=== PATIENT | female | born 1985 | race Caucasian/White ===

== ENCOUNTER 2025-05-08 03:54 | Emergency (ER) | payer OTHER, SELFPAY ==
[2025-05-08 03:58] VITALS: BP 116/79; PULSE 92; TEMP 36.6; O2SAT 100; BMI 16.5
--- NOTE | 2025-05-08 04:26 | ED.ABDPAIN1 ---
HPI - Abdominal Pain General Chief Complaint: Abdominal Pain Stated Complaint: WEAKNESS, ABDOMINAL PAIN Time Seen by Provider: 05/08/25 04:08 History of Present Illness HPI narrative: past history of Crohn's disease. last BM one week ago. Has not had colonoscopy in over 7 years. States she has not been seen by GI for several years. She has loss about 3-lbs in the past few months. States she is able to eat . She has been depressed after a breakup of someone she was with for 12 years. Has new boyfriend now for past 3 months. Has lower abdominal pain that comes and goes. Feels like her whole body is aching. no fever. Had chest pain for 10 minutes yesterday. Past tubal ligation. Home test neg . Related Data Home Medications ?Medication ?Instructions ?Recorded ?Confirmed No Known Home Medications 05/08/25 05/08/25 Allergies Allergy/AdvReac Type Severity Reaction Status Date / Time No Known Drug Allergies Allergy Verified 05/08/25 04:02 Review of Systems ROS Status of ROS 10 or more systems reviewed and unremarkable except as noted in history and below [facility] Medical History (Updated 05/08/25 @ 06:48 by Stevenson Luis MD) Crohn's disease ?K50.90 - Crohn's disease, unspecified, without complications (ICD-10) Surgical History (Updated 05/08/25 @ 06:08 by Florencia Booth) History of bilateral salpingectomy ?Z90.79 - Acquired absence of other genital organ(s) (ICD-10) Social History Little interest or pleasure in doing things: not at all Feeling down, depressed, or hopeless: not at all Exam Constitutional Vital Signs, click to edit/add: Last Vital Signs Temp 97.9 F 05/08/25 03:58 Pulse 92 H 05/08/25 03:58 Resp 18 05/08/25 03:58 BP 116/79 05/08/25 03:58 Pulse Ox 100 05/08/25 03:58 O2 Del Method Room Air 05/08/25 03:58 Common normals: no apparent distress, oriented x3, alert and well nourished Other: looks emaciated [facility] Common normals: normocephalic and head/scalp atraumatic Eye Common normals: EOMs intact bilaterally and conjunctivae normal Respiratory Common normals: normal respiratory effort, no retractions, no use of accessory muscles and clear to auscultation bilaterally Cardio Common normals: regular rate, regular rhythm, S1 normal heart sound and S2 normal heart sound GI Common normals: Normal to inspection, nondistended, normoactive bowel sounds present and soft to palpation Other: nonspecific lower quad tenderness. no guarding Extremity Common normals: normal to inspection and full ROM Neuro Common normals: oriented x3, CN's II-XII intact bilaterally, moves all extremities and no focal motor deficits Psych Appearance: grossly normal Mood and affect: depressed mood Course Vital Signs Vital signs: Vital Signs Temperature 97.9 F 05/08/25 03:58 Pulse Rate 92 H 05/08/25 03:58 Respiratory Rate 18 05/08/25 03:58 Blood Pressure 116/79 05/08/25 03:58 Pulse Oximetry 100 05/08/25 03:58 Oxygen Delivery Method Room Air 05/08/25 03:58 Temperature 97.9 F 05/08/25 03:58 Pulse Rate 92 H 05/08/25 03:58 Respiratory Rate 18 05/08/25 03:58 Blood Pressure 116/79 05/08/25 03:58 Pulse Oximetry 100 05/08/25 03:58 Oxygen Delivery Method Room Air 05/08/25 03:58 MDM - Abdominal Pain MDM Narrative Medical decision making narrative: Normal white blood cell count. Unremarkable CMP. Negative UA. CT abdomen pending. Patient signed out to Dr Abdi at shift change. Lab Data Attestation: I reviewed the patient's lab results. Labs: Lab Results 05/08/25 05/08/25 Range/Units 04:07 04:14 WBC 8.7 (4.0-11.0) 10^3/uL RBC 3.97 L (4.20-5.40) 10^6/uL Hgb 12.3 (12.0-16.0) g/dL Hct 36.1 (36.0-48.0) % MCV 90.9 (81.0-99.0) fL MCH 31.0 (26.7-34.0) pg MCHC 34.1 (29.9-35.2) g/dL RDW 12.4 (11.0-15.0) % Plt Count 270 (150-450) 10^3/uL MPV 9.4 L (9.5-13.5) fL Neut % (Auto) 65.8 (43.0-75.0) % Lymph % (Auto) 24.7 (20.5-60.0) % Hunt % (Auto) 8.1 (1.7-12.0) % Eos % (Auto) 0.6 L (0.9-7.0) % Baso % (Auto) 0.6 (0.2-2.0) % Neut # (Auto) 5.7 (1.4-6.5) 10^3/uL Lymph # (Auto) 2.2 (1.2-3.8) 10^3/uL Hunt # (Auto) 0.7 (0.3-0.8) 10^3/uL Eos # (Auto) 0.1 (0.0-0.7) 10^3/uL Baso # (Auto) 0.1 (0.0-0.1) 10^3/uL Abs Immat Gran (auto) 0.02 (0.00-0.03) 10^3/uL Imm/Tot Granulo (auto) 0.2 (0.0-0.5) % Sodium 140 (136-145) mmol/L Potassium 3.4 L (3.5-5.1) mmol/L Chloride 104 (98-107) mmol/L Carbon Dioxide 26.3 (21.0-32.0) mmol/L Anion Gap 13.1 BUN 17.0 (7.0-18.0) mg/dL Creatinine 0.87 (0.55-1.02) mg/dL Est GFR ( Amer) >60 (>=60 mL/min/1.73m^2) Est GFR (Non-Af Amer) >60 (>=60 mL/min/1.73m^2) BUN/Creatinine Ratio 19.5 Glucose 122 H (74-106) mg/dL Lactate 0.7 (0.4-2.0) mmol/L Calcium 8.9 (8.5-10.1) mg/dL Total Bilirubin 0.5 (0.2-1.0) mg/dL AST 12 L (15-37) U/L ALT 16 (14-59) U/L Alkaline Phosphatase 53 (46-116) U/L Troponin I High Sens 6.8 (4.0-51.3) pg/mL Total Protein 7.1 (6.4-8.2) g/dL Albumin 3.7 (3.4-5.0) g/dL Globulin 3.4 g/dL Albumin/Globulin Ratio 1.1 Lipase 25.0 (16.0-77.0) U/L Urine Color Yellow (YELLOW) Urine Clarity Clear (CLEAR) Urine pH 6.0 (5.0-9.0) Ur Specific [place] 1.020 (1.005-1.025) Urine Protein Negative (NEG/TRACE) mg/dL Urine Glucose (UA) Negative (NEGATIVE) mg/dL Urine Ketones Trace A (NEGATIVE) mg/dL Urine Occult Blood Negative (NEGATIVE) Urine Nitrite Negative (NEGATIVE) Urine Bilirubin Negative (NEGATIVE) Urine Urobilinogen 1.0 (0.2-1.0) EU/dL Ur Leukocyte Esterase Negative (NEGATIVE) Urine RBC None seen (0-2) #/HPF Urine WBC None seen (NONE SEEN) #/HPF Ur Squamous Epith Cells Few A (NONE/RARE) #/LPF Urine Crystals None seen (None Seen) #/HPF Urine Bacteria None seen (NONE SEEN) #/HPF Urine Casts None seen (NONE SEEN) #/LPF Urine Mucus None seen (NONE SEEN) Ur Culture Indicated? No Urine HCG, Qual Negative (NEGATIVE) Discharge Plan Discharge Patient Disposition: Still a Patient
[2025-05-08 04:37] LABS: Hematocrit 36.1 % (36.0-48.0); Hemoglobin 12.3 g/dL (12.0-16.0); Immature Granulocytes Abs Auto 0.02 10^3/uL (0.00-0.03); Immature Granulocytes Pct Auto 0.2 % (0.0-0.5); Lymphocytes Absolute Auto 2.2 10^3/uL (1.2-3.8); Mean Corpuscular HGB Conc 34.1 g/dL (29.9-35.2); Mean Corpuscular Hemoglobin 31.0 pg (26.7-34.0); Mean Corpuscular Volume 90.9 fL (81.0-99.0); Platelet Count 270 10^3/uL (150-450); Red Blood Count 3.97 10^6/uL (4.20-5.40); White Blood Count 8.7 10^3/uL (4.0-11.0)
[2025-05-08 04:39] LABS: Glucose Urine UA NEGATIVE (NEGATIVE)
[2025-05-08 04:51] LABS: Alanine Aminotransferase 16 U/L (14-59); Albumin Globulin Ratio 1.1; Albumin Level 3.7 g/dL (3.4-5.0); Alkaline Phosphatase 53 U/L (46-116); Anion Gap 13.1; Aspartate Amino Transferase 12 U/L (15-37); Blood Urea Nitrogen 17.0 mg/dL (7.0-18.0); Calcium 8.9 mg/dL (8.5-10.1); Carbon Dioxide 26.3 mmol/L (21.0-32.0); Chloride 104 mmol/L (98-107); Estimated GFR (African America >60 (>=60 mL/min/1.73m^2); Estimated GFR (Non-African Ame >60 (>=60 mL/min/1.73m^2); Globulin 3.4 g/dL; Glucose 122 mg/dL (74-106); Lipase 25.0 U/L (16.0-77.0); Potassium 3.4 mmol/L (3.5-5.1); Sodium 140 mmol/L (136-145); Total Protein 7.1 g/dL (6.4-8.2)
[2025-05-08 04:59] LABS: Lactate/Lactic Acid 0.7 mmol/L (0.4-2.0)
[2025-05-08 05:04] LABS: Cast Seen? NONE SEEN #/LPF (NONE SEEN); Crystals Seen? None Seen #/HPF (None Seen); Urine Culture Indicated NO
[2025-05-08 05:17] LABS: HCG Qualitative Urine* NEGATIVE (NEGATIVE)
[2025-05-08] MEDS: ORPHENADRINE 60 MG/2 ML VIAL IV (05:26)
[2025-05-08] MEDS: 0.9 % SODIUM CHLORIDE 1,000 ML 999 ML IV (05:26)
--- OUTSIDE RECORDS SUMMARY | 2025-05-08 05:46 | XMS_ITS | Patient Health Record ---
Author Organization [facility] in [place] Address [address] [place] [address] Support Name Relationship Address Phone Chayito Chandler Guarantor Unknown Reason For Referral No Information Plan Of Treatment No Information
--- OUTSIDE RECORDS SUMMARY | 2025-05-08 05:46 | XMS_ITS | Clinical Summary ---
Author Organization [facility] Address [address] [place] [id number] Care Team Providers Care Tobacco Prizer Name Role Phone Unavailable Primary Care Provider Unavailabl e Allergies No known active allergies Medications buprenorphine-n alOXone SL (SUBOXONE) 8-2 mg subl TAKE 1 TABLET SUBLINGUALLY EVERY MORNING AND HALF A TABLET EVERY EVENING [address] (DEPAKOTE) 250 mg EC tablet Take 250 mg by mouth once daily. 2 Active venlafaxine (EFFEXOR) 100 mg tablet Take 75 mg by mouth. Active Social History Tobacco Use Types Packs/Day Years Used Date Smoking Tobacco: Never Assessed Area Deprivation Index Answer Date Vincent rded National Score (1-100), lower number is lower ri sk 89 02/08/2025 State Score (1-10), lower number is lower risk 8 02/08/2025 Data from: https://www.neighborhoodatlas.medicine.[facility].edu/. Last address used for calculation [address] [place] [address] 02/08/2025 Comments Unknown Sex and Gender Information Value Date Recorded Sex Assigned at Not on file Legal Sex Female 8:35 AM EDT Gender Identity Not on file Sexual Orientation Not on file Last Filed Vital Signs Vital Sign Reading Time Taken Comments Blood Pressure 97/65 03/10/2022 1:14 PM EDT Pulse 113 03/10/2022 1:14 PM EDT Temperature - - Respiratory Rate - - Oxygen Saturation - - Inhaled Oxygen Concentration - - Weight 58.5 kg (129 lb) 03/10/2022 1:14 PM EDT Height - - Body Mass Index - - Plan of Treatment Health Maintenance Due Date Last Done Comments Anxiety Screening 2005 Depression Screening 2005 HIV Screening 2005 Hepatitis C Screening 2005 Hepatitis B Vaccine (1 of 3 - 19+ 3-dose series) 2006 Cervical Cancer Screening 2008 HPV Vaccine (1 - 3-dose SCDM series) 2014 Covid-19 Vaccine (1 - 2024-2 6 season) 2025 Influenza Vaccine (#1) 2025 5, 04/06/2014, 04/15/2013, Additional history exists DTaP,Tdap,Td Vaccine (3 - Td or Tdap) 11/27/2032 11/27/2022, 05/02/2013 Insurance [employer]
[2025-05-08 08:27] VITALS: BP 116/77; PULSE 73; O2SAT 99
[2025-05-08] MEDS: HYDROMORPHONE HCL 1 MG/ML CARTRIDGE IVP ×2 (09:19→18:33)
[2025-05-08 09:23] VITALS: PULSE 65; O2SAT 98
[2025-05-08] MEDS: 0.9 % SODIUM CHLORIDE 1,000 ML 150 ML IV (11:21)
[2025-05-08] MEDS: MIDAZOLAM HCL 50 MG/10 ML IV (11:57)
[2025-05-08 13:59] VITALS: PULSE 61; O2SAT 100
[2025-05-08 18:54] VITALS: BP 108/65; PULSE 67; O2SAT 99
== END 2025-05-08 18:55 | disposition short-term general hospital (02) ==
PROVIDERS: Internal Medicine; Emergency Provider Emergency Medicine
DX: K56.1 Intussusception (principal); K59.00 Constipation, unspecified; K50.90 Crohn's disease, unspecified, without complications
CPT/HCPCS: 36415; 74177; 80053; 81001; 83605; 83690; 84484; 84703; 85025; 96374; 96375; 96376; 99285; J1171; J2250; J2360; J2405; Q9967

== ENCOUNTER 2025-06-27 19:31 | Emergency (ER) | payer OTHER, SELFPAY ==
--- OUTSIDE RECORDS SUMMARY | 2022-05-13 03:28 | XMS_ITS | Continuity of Care Document ---
Author Organization [facility] Address [address] [place] [address] Phone Care Team Providers Care Medical Lab Technologist Name Role Phone Jose Alanna CORTEZ Unavailable Unavailable Allergies, Adverse Reactions, Alerts Substance Reaction Status Criticality No Known Allergies Active No Inform ation Medications Medication Instructions Dosage Effective Dates (start - stop) Status Comments buspirone 15 mg tablet take 1 tablet by oral route 2 times every day 15 MG - Active Depakote 250 mg tablet,delayed release take 1 tablet by oral route every day 250 MG - Active Effexor XR 75 mg capsule,extended release take 1 capsule by oral route every day with food 75 MG - Active ibuprofen 800 mg tablet TAKE 1 TABLET BY MOUTH THREE TIMES A DAY WITH FOOD - Active Imitrex 50 mg tablet take 1 tablet by oral route once after onset; may repeat after 2 hours if headache returns,not to exceed 200 in 24hrs as needed for Headache 50 MG - Active buprenorphine 8 mg-naloxone [address] 1 tablet by sublingual route every day allow to dissolve slowly in mouth without chewing or swallowing 1 tablet - Active F11.10 [id number] clindamycin HCl 300 mg capsule take 1 capsule by oral route every 6 hours 300 MG - Active Procedures Procedure Date Tobacco Counseling No Charge Oral Hygiene Instruction Intraoral-periapical 1st Film Bitewig-single Film Limited Oral Eval PSYTX PT&/FAMILY 60 MINUTES DRUG TEST PRSMV DIR OPT OBS OFFICE/OUTPATIENT VISIT, EST PSYTX PT&/FAMILY 60 MINUTES PSYTX PT&/FAMILY 45 MINUTES URINE TEST DRUG TEST PRSMV DIR OPT OBS OFFICE/OUTPATIENT VISIT, EST PSYTX PT&/FAMILY 60 MINUTES OFFICE/OUTPATIENT VISIT, EST DRUG TEST PRSMV DIR OPT OBS DRUG TEST PRSMV DIR OPT OBS OFFICE/OUTPATIENT VISIT, EST PSYTX PT&/FAMILY 60 MINUTES DRUG TEST PRSMV DIR OPT OBS OFFICE/OUTPATIENT VISIT, EST PSYTX PT&/FAMILY 60 MINUTES OFFICE/OUTPATIENT VISIT, EST DRUG TEST PRSMV DIR OPT OBS URINE TEST PSYTX PT&/FAMILY 60 MINUTES Bitewings Four Films Prophylaxis Adult Oral Hygiene Instruction Periodic Oral Eval Estab Patient 2020 DRUG TEST PRSMV DIR OPT OBS OFFICE/OUTPATIENT VISIT, EST PSYTX PT&/FAMILY 60 MINUTES Limited Oral Eval Oral Hygiene Instruction DRUG TEST PRSMV DIR OPT OBS OFFICE/OUTPATIENT VISIT, EST PSYTX PT&/FAMILY 45 MINUTES DRUG TEST PRSMV DIR OPT OBS OFFICE/OUTPATIENT VISIT, EST PSYTX PT&/FAMILY 45 MINUTES OFFICE/OUTPATIENT VISIT, EST DRUG TEST PRSMV DIR OPT OBS OFFICE/OUTPATIENT VISIT, EST DRUG TEST PRSMV DIR OPT OBS PSYTX PT&/FAMILY 60 MINUTES DRUG TEST PRSMV DIR OPT OBS OFFICE/OUTPATIENT VISIT, EST DRUG TEST PRSMV DIR OPT OBS OFFICE/OUTPATIENT VISIT, EST PSYTX PT&/FAMILY 60 MINUTES DRUG TEST PRSMV DIR OPT OBS OFFICE/OUTPATIENT VISIT, EST PSYTX PT&/FAMILY 60 MINUTES PSYTX PT&/FAMILY 60 MINUTES DRUG TEST PRSMV DIR OPT OBS OFFICE/OUTPATIENT VISIT, EST DRUG TEST PRSMV DIR OPT OBS OFFICE/OUTPATIENT VISIT, EST PSYTX PT&/FAMILY 60 MINUTES DRUG TEST PRSMV DIR OPT OBS OFFICE/OUTPATIENT VISIT, EST PSYTX PT&/FAMILY 60 MINUTES DRUG TEST PRSMV DIR OPT OBS OFFICE/OUTPATIENT VISIT, EST PSYTX PT&/FAMILY 60 MINUTES DRUG TEST PRSMV DIR OPT OBS OFFICE/OUTPATIENT VISIT, EST PSYTX PT&/FAMILY 60 MINUTES DRUG TEST PRSMV DIR OPT OBS OFFICE/OUTPATIENT VISIT, EST PSYTX PT&/FAMILY 45 MINUTES DRUG TEST PRSMV DIR OPT OBS OFFICE/OUTPATIENT VISIT, EST PSYTX PT&/FAMILY 45 MINUTES DRUG TEST PRSMV DIR OPT OBS OFFICE/OUTPATIENT VISIT, EST PSYTX PT&/FAMILY 60 MINUTES DRUG TEST PRSMV DIR OPT OBS OFFICE/OUTPATIENT VISIT, EST DRUG TEST PRSMV DIR OPT OBS OFFICE/OUTPATIENT VISIT, EST PSYCH DIAGNOSTIC EVALUATION OFFICE/OUTPATIENT VISIT, EST DRUG TEST PRSMV DIR OPT OBS OFFICE/OUTPATIENT VISIT, EST OFFICE/OUTPATIENT VISIT, EST DRUG TEST PRSMV DIR OPT OBS OFFICE/OUTPATIENT VISIT, EST Intraoral-complete Series (bw) 20 Comp Oral Eval New/estab Patient 2019 Nutrit Couns For Control Of [place] Dis Aug Oral Hygiene Instruction DRUG TEST PRSMV DIR OPT OBS OFFICE/OUTPATIENT VISIT, EST DRUG TEST PRSMV DIR OPT OBS OFFICE/OUTPATIENT VISIT, EST DRUG TEST PRSMV DIR OPT OBS OFFICE/OUTPATIENT VISIT, EST DRUG TEST PRSMV DIR OPT OBS OFFICE/OUTPATIENT VISIT, EST DRUG TEST PRSMV DIR OPT OBS OFFICE/OUTPATIENT VISIT, EST No Charge DRUG TEST PRSMV DIR OPT OBS OFFICE/OUTPATIENT VISIT, EST DRUG TEST PRSMV DIR OPT OBS OFFICE/OUTPATIENT VISIT, EST DRUG TEST PRSMV DIR OPT OBS DRUG TEST PRSMV DIR OPT OBS OFFICE/OUTPATIENT VISIT, EST DRUG TEST PRSMV DIR OPT OBS OFFICE/OUTPATIENT VISIT, EST DRUG TEST PRSMV DIR OPT OBS OFFICE/OUTPATIENT VISIT, EST DRUG TEST PRSMV DIR OPT OBS OFFICE/OUTPATIENT VISIT, EST DRUG TEST PRSMV DIR OPT OBS URINALYSIS NONAUTO W/O SCOPE OFFICE/OUTPATIENT VISIT, EST DRUG TEST PRSMV DIR OPT OBS URINALYSIS NONAUTO W/O SCOPE OFFICE/OUTPATIENT VISIT, EST DRUG TEST PRSMV DIR OPT OBS URINE TEST URINALYSIS NONAUTO W/O SCOPE OFFICE/OUTPATIENT VISIT, EST Office Visit/[facility] DRUG TEST PRSMV DIR OPT OBS OFFICE/OUTPATIENT VISIT, EST Office Visit/[facility] DRUG TEST PRSMV DIR OPT OBS OFFICE/OUTPATIENT VISIT, EST Office Visit/[facility] DRUG TEST PRSMV DIR OPT OBS OFFICE/OUTPATIENT VISIT, EST Office Visit/[facility] OFFICE/OUTPATIENT VISIT, EST DRUG SCREENING F[place] DRUG TEST PRSMV DIR OPT OBS DRUG TEST PRSMV DIR OPT OBS DRUG SCREENING [place] OFFICE/OUTPATIENT VISIT, EST DRUG TEST PRSMV DIR OPT OBS DRUG SCREENING [place] OFFICE/OUTPATIENT VISIT, EST DRUG TEST PRSMV DIR OPT OBS DRUG SCREENING [place] OFFICE/OUTPATIENT VISIT, EST OFFICE/OUTPATIENT VISIT, EST DRUG SCREENING [place] DRUG TEST PRSMV DIR OPT OBS URINE TEST OFFICE/OUTPATIENT VISIT, EST DRUG SCREENING [place] DRUG TEST PRSMV DIR OPT OBS Detox Discharge Alcohol and/or drug services- Acute Deto x Alcohol and/or drug services- Acute Deto x Alcohol and/or drug services- Acute Deto x DRUG TEST PRSMV DIR OPT OBS Alcohol and/or drug services- Acute Deto x URINE TEST Alcohol and/or drug services- Acute Deto x Alcohol and/or drug services- Acute Deto x Alcohol and/or drug services- Acute Deto x Alcohol and/or drug services- Acute Deto x SMEAR, WET MOUNT, SALINE/INK Alcohol and/or drug services- Acute Deto x Alcohol and/or drug services- Acute Deto x Advance Directives Directive Yes / No Effective Date File Name No Information Encounters Encounter Description Practice Location Reason(s) For Visit Diagnoses Date Provider Providers Copied on Encounter [facility], [address] [place] [address], [id number] , [place] tel: [phone] Behavorial Health Opioid dependence, uncomplicated Apr- 2 Jose Mondragon. [address] [place] [address], [address], [place]. tel:[phone] [facility], [address] [place] [address], [id number] , [place] tel: [phone] [facility] Opioid dependence, uncomplicatedMood disorderAnxiety NOS 2 Jose Mondragon. [address] [place] [address], [address], [place]. tel: [phone] [facility], [address] [place] [address], [id number] , [place] tel:+ [phone] Dental Clinic Extraction (chief complaint) Encounter for screening for dental disorders 2 Darwin Benitez. [address] [place] [address], [address], [place]. tel: [phone] [facility], [address] [place] [address], [id number] , [place] tel:+ [phone] Dental Clinic DL (chief complaint) Encounter for screening for dental disorders 0 2 Daniel Fairbanks. [address] [place] [address], [id number] , [place]. tel:+ [phone] PSYTX PT&/FAMILY 60 MINUTES [facility], [address] [place] [address], [id number] , [place] tel:+ [phone] [facility] Opioid dependence, uncomplicatedMood disorderAnxiety NOS 2 Jose Mondragon. [address] [place] [address], [address], [place]. tel:+ [phone] OFFICE/OUTPA TIENT VISIT, [facility], [address], [place], [id number] , [place] tel: [phone] [facility] Suboxone (chief complaint)U DS (chief complaint) Body mass index [BMI] 19.9 or less, adultOpioid dependence, uncomplicated 1 Pavlock DO Max. [address], [place], [id number] , [place]. tel: [phone] PSYTX PT&/FAMILY 60 MINUTES [facility], [address] [place] [address], [id number] , [place] tel: [phone] [facility] Opioid dependence, uncomplicatedMood disorderAnxiety NOS 1 Jose Mondragon. [address] [place] [address], [address], [place]. tel: [phone] PSYTX PT&/FAMILY 45 MINUTES [facility], [address] [place] [address], [id number] , [place] tel: [phone] [facility] Opioid dependence, uncomplicatedMood disorderAnxiety NOS 1 Jose Mondragon. [address] [place] [address], [address], [place]. tel: [phone] OFFICE/OUTPA TIENT VISIT, [facility], [address] [place] [address], [id number] , [place] tel: [phone] [facility] Suboxone (chief complaint) Opioid dependence, uncomplicatedBody mass index [BMI] 20.0-20.9, adult 1 Pavlock DO Max. [address], [place], [id number] , [place]. tel: [phone] PSYTX PT&/FAMILY 60 MINUTES [facility], [address] [place] [address], [id number] , [place] tel: [phone] [facility] Opioid dependence, uncomplicatedMood disorderAnxiety NOS 1 Jose Mondragon. [address] [place], [address], [place]. tel: [phone] OFFICE/OUTPA TIENT VISIT, [facility], [address], [place], [id number] , [place] tel: [phone] [facility] Suboxone (chief complaint) Body mass index [BMI] 21.0-21.9, adultOpioid dependence, uncomplicated 1 [facility] [address], [place], [id number] , [place]. tel: [phone] OFFICE/OUTPA TIENT VISIT, [facility], [address], [place], [id number] , [place] tel: [phone] [facility] Suboxone (chief complaint)U DS (chief complaint) Opioid dependence, uncomplicatedCervi rusty pain (neck) 1 [facility] [address], [place], [id number] , [place]. tel: [phone] PSYTX PT&/FAMILY 60 MINUTES [facility], [address] [place] [address], [id number] , [place] tel: [phone] [facility] Opioid dependence, uncomplicatedMood disorderAnxiety NOS 1 Jose Mondragon. [address] [place], [address], [place]. tel: [phone] OFFICE/OUTPA TIENT VISIT, [facility], [address], [place], [id number] , [place] tel: [phone] [facility] suboxone (chief complaint)U DS (chief complaint) Body mass index [BMI] 21.0-21.9, adultOpioid dependence, uncomplicatedMulti ple joint pain 1 Pavlock DO Max. [address], [place], [id number] , [place]. tel: [phone] PSYTX PT&/FAMILY 60 MINUTES [facility], [address] [place] [address], [id number] , [place] tel: [phone] [facility] Opioid dependence, uncomplicatedMood disorderAnxiety NOS 1 Jose Wangcy. [address] [place], [address], [place]. tel: [phone] OFFICE/OUTPA TIENT VISIT, [facility], [address], [place], [id number] , [place] tel: [phone] [facility] Suboxone (chief complaint)U DS (chief complaint) Opioid dependence, uncomplicatedUrina ry frequency 1 Pavlock DO Max. [address], [place], [id number] , [place]. tel: [phone] PSYTX PT&/FAMILY 60 MINUTES [facility], [address] [place] [address], [id number] , [place] tel: [phone] [facility] Opioid dependence, uncomplicatedMood disorderAnxiety NOS 1 Jose Mondragon. [address] [place], [address], [place]. tel: [phone] [facility], [address] [place] [address], [id number] , [place] tel: [phone] Dental Clinic prophy (chief complaint) Encounter for screening for dental disorders 1 Bhavik Masters. [address] [place] [address], [address], [place]. tel: [phone] OFFICE/OUTPA TIENT VISIT, [facility], [address], [place], [id number] , [place] tel: [phone] [facility] SUBOXONE (chief complaint)U DS (chief complaint) Body mass index [BMI] 21.0-21.9, adultOpioid dependence, uncomplicated 1 Pavlock DO Max. [address], [place], [id number] , [place]. tel: [phone] PSYTX PT&/FAMILY 60 MINUTES [facility], [address] [place] [address], [id number] , [place] tel: [phone] [facility] Opioid dependence, uncomplicatedMood disorderAnxiety NOS 1 Jose Wangcy. [address] [place], [address], [place]. tel: [phone] [facility], [address], [place], [id number] , [place] tel: [phone] Dental Clinic D.L. (chief complaint) Encounter for screening for dental disorders 1 Bhavik Masters. [address] [place], [address], [place]. tel: [phone] OFFICE/OUTPA TIENT VISIT, [facility], [address] [place] [address], [id number] , [place] tel: [phone] [facility] Suboxone (chief complaint)U DS (chief complaint) Body mass index [BMI] 22.0-22.9, adultOpioid dependence, uncomplicated 1 Pavlock DO Max. [address] [place] [address], [id number] , [place]. tel: [phone] PSYTX PT&/FAMILY 45 MINUTES [facility], [address] [place] [address], [id number] , [place] tel: [phone] [facility] Opioid dependence, uncomplicatedMood disorderAnxiety NOS 1 Jose Mondragon. [address] [place] [address], [address], [place]. tel:+ [phone] OFFICE/OUTPA TIENT VISIT, [facility], [address] [place] [address], [id number] , [place] tel:+ [phone] [facility] Suboxone (chief complaint)U DS (chief complaint) Body mass index [BMI] 22.0-22.9, adultOpioid dependence, uncomplicated 1 Pavlock DO Max. [address], [place], [id number] , [place]. tel: [phone] PSYTX PT&/FAMILY 45 MINUTES [facility], [address], [place], [id number] , [place] tel: [phone] [facility] Opioid dependence, uncomplicatedMood disorderAnxiety NOS 1 Jose Mondragon. [address] [place], [address], [place]. tel: [phone] [facility], [address], [place], [id number] , [place] tel: [phone] [facility] Opioid dependence, uncomplicatedMood disorderAnxiety NOS 1 Jose Mondragon. [address] [place], [address], [place]. tel: [phone] OFFICE/OUTPA TIENT VISIT, [facility], [address], [place], [id number] , [place] tel: [phone] [facility] suboxone (chief complaint)U DS (chief complaint) Opioid dependence, uncomplicatedBody mass index [BMI] 22.0-22.9, adult 1 Pavlock DO Max. [address], [place], [id number] , [place]. tel: [phone] OFFICE/OUTPA TIENT VISIT, [facility], [address], [place], [id number] , [place] tel: [phone] [facility] Suboxone (chief complaint) Opioid dependence with withdrawalOpioid dependence, uncomplicatedBody mass index [BMI] 22.0-22.9, adult 1 Pavlock DO Max. [address], [place], [id number] , [place]. tel: [phone] PSYTX PT&/FAMILY 60 MINUTES [facility], [address], [place], [id number] , [place] tel: [phone] [facility] Opioid dependence, uncomplicatedMood disorderAnxiety NOS 1 Jose Mondragon. [address] [place] [address], [address], [place]. tel: [phone] OFFICE/OUTPA TIENT VISIT, [facility], [address], [place], [id number] , [place] tel: [phone] [facility] Suboxone (chief complaint)U DS (chief complaint) Opioid dependence, uncomplicatedBody mass index [BMI] 22.0-22.9, adult 0 Pavlock DO Max. [address], [place], [id number] , [place]. tel: [phone] OFFICE/OUTPA TIENT VISIT, [facility], [address], [place], [id number] , [place] tel: [phone] [facility] Suboxone (chief complaint)C ough (chief complaint) Opioid dependence, uncomplicatedBody mass index [BMI] 22.0-22.9, adultCervical lymphadenitis 0 Pavlock DO Max. [address], [place], [id number] , [place]. tel: [phone] PSYTX PT&/FAMILY 60 MINUTES [facility], [address], [place], [id number] , [place] tel: [phone] [facility] Opioid dependence, uncomplicatedMood disorderAnxiety NOS 0 Jose Mondragon. [address] [place], [address], [place]. tel: [phone] OFFICE/OUTPA TIENT VISIT, [facility], [address], [place], [id number] , [place] tel: [phone] [facility] Suboxone (chief complaint)U DS (chief complaint) Body mass index [BMI] 22.0-22.9, adultOpioid dependence, uncomplicated 0 Pavlock DO Max. [address], [place], [id number] , [place]. tel: [phone] PSYTX PT&/FAMILY 60 MINUTES [facility], [address], [place], [id number] , [place] tel: [phone] [facility] Opioid dependence, uncomplicatedMood disorderAnxiety NOS 0 Jose DANA Mondragon. [address] [place], [address], [place]. tel: [phone] PSYTX PT&/FAMILY 60 MINUTES [facility], [address], [place], [id number] , [place] tel: [phone] [facility] Opioid dependence, uncomplicatedMood disorderAnxiety NOS 0 Jose DANA Mondragon. [address] [place], [address], [place]. tel: [phone] OFFICE/OUTPA TIENT VISIT, [facility], [address], [place], [id number] , [place] tel: [phone] [facility] Suboxone (chief complaint)U DS (chief complaint) Opioid dependence, uncomplicatedBody mass index [BMI] 22.0-22.9, adult Apr- 0 Pavlock DO Max. [address], [place], [id number] , [place]. tel: [phone] OFFICE/OUTPA TIENT VISIT, [facility], [address], [place], [id number] , [place] tel: [phone] [facility] Suboxone (chief complaint)U DS (chief complaint) Opioid dependence, uncomplicatedBody mass index [BMI] 21.0-21.9, adult Sep-3 0-202 0 Pavlock DO Max. [address], [place], [id number] , [place]. tel: [phone] PSYTX PT&/FAMILY 60 MINUTES [facility], [address], [place], [id number] , [place] tel: [phone] [facility] Opioid dependence, uncomplicatedMood disorderAnxiety NOS 0 0 Jose DANA Mondragon. [address] [place], [address], [place]. tel: [phone] OFFICE/OUTPA TIENT VISIT, [facility], [address], [place], [id number] , [place] tel: [phone] [facility] Suboxone (chief complaint)U DS (chief complaint) Opioid dependence, uncomplicatedBody mass index (BMI) 21.0-21.9, adultBronchitis Mar- 0 Pavlock DO Max. [address], [place], [id number] , [place]. tel: [phone] PSYTX PT&/FAMILY 60 MINUTES [facility], [address], [place], [id number] , [place] tel: [phone] [facility] Opioid dependence, uncomplicatedMood disorderAnxiety NOS Mar- 0 Jose Mondragon. [address] [place], [address], [place]. tel: [phone] OFFICE/OUTPA TIENT VISIT, [facility], [address], [place], [id number] , [place] tel: [phone] [facility] Suboxone (chief complaint)U DS (chief complaint) Opioid dependence, uncomplicatedBody mass index (BMI) 22.0-22.9, adult Sep-0 0 Pavlock DO Max. [address], [place], [id number] , [place]. tel: [phone] PSYTX PT&/FAMILY 60 MINUTES [facility], [address], [place], [id number] , [place] tel: [phone] [facility] Opioid dependence, uncomplicatedMood disorderAnxiety NOS Sep-0 0 Jose Mondragon. [address] [place], [address], [place]. tel: [phone] OFFICE/OUTPA TIENT VISIT, [facility], [address], [place], [id number] , [place] tel: [phone] [facility] Suboxone (chief complaint)U DS (chief complaint) Body mass index (BMI) 22.0-22.9, adultOpioid dependence, uncomplicated Feb- 0 Pavlock DO Max. [address], [place], [id number] , [place]. tel: [phone] PSYTX PT&/FAMILY 60 MINUTES [facility], [address], [place], [id number] , [place] tel: [phone] [facility] Opioid dependence, uncomplicatedMood disorderAnxiety NOS 0 Jose CORTEZ Alanna. [address] [place], [address], [place]. tel: [phone] OFFICE/OUTPA TIENT VISIT, [facility], [address], [place], [id number] , [place] tel: [phone] [facility] Suboxone (chief complaint)U DS (chief complaint) Uncomplicated opioid abuseBody mass index (BMI) 22.0-22.9, adult 0 Pavlock DO Max. [address], [place], [id number] , [place]. tel: [phone] PSYTX PT&/FAMILY 45 MINUTES [facility], [address], [place], [id number] , [place] tel: [phone] [facility] Opioid dependence, uncomplicatedMood disorderAnxiety NOS 0 Jose Mondragon. [address] [place], [address], [place]. tel: [phone] [facility], [address], [place], [id number] , [place] tel: [phone] [facility] Opioid dependence, uncomplicatedMood disorderAnxiety NOS 0 Pavlock DO Max. [address], [place], [id number] , [place]. tel: [phone] OFFICE/OUTPA TIENT VISIT, [facility], [address], [place], [id number] , [place] tel: [phone] [facility] Suboxone (chief complaint)U DS (chief complaint)h air loss (chief complaint) Uncomplicated opioid abuseBody mass index (BMI) 22.0-22.9, adultAlopecia 0 Pavlock DO Max. [address], [place], [id number] , [place]. tel: [phone] PSYTX PT&/FAMILY 45 MINUTES [facility], [address], [place], [id number] , [place] tel: [phone] [facility] Opioid dependence, uncomplicatedMood disorderAnxiety NOS 0 Jose Mondragon. [address] [place], [address], [place]. tel: [phone] OFFICE/OUTPA TIENT VISIT, [facility], [address], [place], [id number] , [place] tel: [phone] [facility] Suboxone (chief complaint)U DS (chief complaint) Body mass index (BMI) 22.0-22.9, adultOpioid dependence, uncomplicatedAnxie ty NOS 0 Pavlock DO Max. [address], [place], [id number] , [place]. tel: [phone] PSYTX PT&/FAMILY 60 MINUTES [facility], [address], [place], [id number] , [place] tel: [phone] [facility] Opioid dependence, uncomplicatedMood disorderAnxiety NOS 0 Jose Mondragon. [address] [place], [address], [place]. tel: [phone] [facility], [address], [place], [id number] , [place] tel: [phone] [facility] Opioid dependence, uncomplicatedMood disorderAnxiety NOS 0 Jose Mondragon. [address] [place], [address], [place]. tel: [phone] OFFICE/OUTPA TIENT VISIT, [facility], [address], [place], [id number] , [place] tel: [phone] [facility] SUBOXONE (chief complaint)U DS (chief complaint) Body mass index (BMI) 22.0-22.9, adultUncomplicated opioid abuse 0 Pavlock DO Max. [address], [place], [id number] , [place]. tel: [phone] OFFICE/OUTPA TIENT VISIT, [facility], [address], [place], [id number] , [place] tel: [phone] [facility] SUBOXONE (chief complaint)U DS (chief complaint) Uncomplicated opioid abuseBody mass index (BMI) 22.0-22.9, adult 0 Pavlock DO Max. [address], [place], [id number] , [place]. tel: [phone] PSYCH DIAGNOSTIC EVALUATION [facility], [address], [place], [id number] , [place] tel: [phone] [facility] Opioid dependence, uncomplicatedMood disorderAnxiety NOS 0 Jose Mondragon. [address] [place], [address], [place]. tel: [phone] OFFICE/OUTPA TIENT VISIT, [facility], [address], [place], [id number] , [place] tel: [phone] [facility] suboxone (chief complaint) Opioid dependence, uncomplicated 0 Pavlock DO Max. [address], [place], [id number] , [place]. tel: [phone] OFFICE/OUTPA TIENT VISIT, [facility], [address], [place], [address] , [place] tel: [phone] [facility] SUBOXONE (chief complaint)D RUG SCREEN (chief complaint) Body mass index (BMI) 22.0-22.9, adultOpioid dependence, uncomplicated 0 Pavlock DO Max. [address], [place], [id number] , [place]. tel: [phone] OFFICE/OUTPA TIENT VISIT, [facility], [address], [place], [id number] , [place] tel: [phone] [facility] SUBOXONE (chief complaint)U DS (chief complaint)R cailin (chief complaint) Body mass index (BMI) 22.0-22.9, adultOpioid dependence, uncomplicatedRash in adult 0 Pavlock DO Max. [address], [place], [id number] , [place]. tel: [phone] OFFICE/OUTPA TIENT VISIT, [facility], [address], [place], [id number] , [place] tel: [phone] [facility] SUBOXONE (chief complaint)U DS (chief complaint) Body mass index (BMI) 22.0-22.9, adultOpioid dependence, uncomplicated 0 Pavlock DO Max. [address], [place], [id number] , [place]. tel: [phone] [facility], [address] [place] [address], [id number] , [place] tel: [phone] Dental Clinic Dental New (chief complaint) Encounter for screening for dental disorders 0 Jennifer Kaur. [address] [place] [address], [id number] , [place]. tel: [phone] OFFICE/OUTPA TIENT VISIT, [facility], [address] [place] [address], [id number] , [place] tel: [phone] [facility] SUBOXONE (chief complaint)U DS (chief complaint) Body mass index (BMI) 22.0-22.9, adultOpioid dependence, uncomplicated 0 Pavlock DO Max. [address] [place] [address], [id number] , [place]. tel: [phone] OFFICE/OUTPA TIENT VISIT, [facility], [address] [place] [address], [id number] , [place] tel: [phone] [facility] SUBOXONE (chief complaint)D RUG SCREEN (chief complaint) Uncomplicated opioid abuseBody mass index (BMI) 23.0-23.9, adult 0 Pavlock DO Max. [address], [place], [id number] , [place]. tel: [phone] OFFICE/OUTPA TIENT VISIT, [facility], [address], [place], [id number] , [place] tel: [phone] [facility] SUBOXONE (chief complaint)D RUG SCREEN (chief complaint) Body mass index (BMI) 23.0-23.9, adultUncomplicated opioid abuse 0 Pavlock DO Max. [address], [place], [id number] , [place]. tel: [phone] OFFICE/OUTPA TIENT VISIT, [facility], [address], [place], [id number] , [place] tel: [phone] [facility] SUBOXONE (chief complaint)D RUG SCREEN (chief complaint) Body mass index (BMI) 22.0-22.9, adultUncomplicated opioid abuse 0 Pavlock DO Max. [address], [place], [id number] , [place]. tel: [phone] OFFICE/OUTPA TIENT VISIT, [facility], [address], [place], [id number] , [place] tel: [phone] [facility] SUBOXONE (chief complaint)D RUG SCREEN (chief complaint) Body mass index (BMI) 22.0-22.9, adultOpioid dependence, uncomplicated 0 Pavlock DO Max. [address], [place], [id number] , [place]. tel: [phone] [facility], [address], [place], [id number] , [place] tel: [phone] [facility] No Information 0 Pavlock DO Max. [address], [place], [id number] , [place]. tel: [phone] OFFICE/OUTPA TIENT VISIT, [facility], [address], [place], [id number] , [place] tel: [phone] [facility] SUBOXONE (chief complaint)D RUG SCREEN (chief complaint)M usculoskele sergio pain (chief complaint) Opioid dependence, uncomplicatedBody mass index (BMI) 22.0-22.9, adultNeck painElbow pain, right 2- 0 Pavlock DO Max. [address] [place] [address], [id number] , [place]. tel: [phone] OFFICE/OUTPA TIENT VISIT, [facility], [address] [place] [address], [id number] , [place] tel: [phone] [facility] SUBOXONE (chief complaint)U RINE DRUG (chief complaint)D izziness (chief complaint) Body mass index (BMI) 22.0-22.9, adultOpioid dependence, uncomplicatedURI, acute Jun-07 28- 9 Pavlock DO Max. [address] [place] [address], [id number] , [place]. tel: [phone] [facility], [address] [place] [address], [id number] , [place] tel: [phone] [facility] Urine Drug Screen (chief complaint) Uncomplicated opioid abuseElbow pain, right 3-201 9 Pavlock DO Max. [address] [place] [address], [id number] , [place]. tel: [phone] OFFICE/OUTPA TIENT VISIT, [facility], [address], [place], [id number] , [place] tel: [phone] [facility] SUBOXONE (chief complaint)D RUG SCREEN (chief complaint)M usculoskele sergio pain (chief complaint) Body mass index (BMI) 23.0-23.9, adultUncomplicated opioid abuseAlopeciaCrohn 's disease with complication, unspecified gastrointestinal tract locationElbow pain, right Dec-0 5-201 9 Pavlock DO Max. [address], [place], [id number] , [place]. tel:+ [phone] OFFICE/OUTPA TIENT VISIT, [facility], [address] [place] [address], [id number] , [place] tel:+ [phone] [facility] SUBOXONE (chief complaint)D RUG SCREEN (chief complaint) Opioid dependence, uncomplicatedBody mass index (BMI) 23.0-23.9, adultFatigue, unspecified type [facility]. [address] [place] [address], [id number] , [place]. tel:+ [phone] OFFICE/OUTPA TIENT VISIT, [facility], [address] [place] [address], [id number] , [place] tel:+ [phone] [facility] SUBOXONE (chief complaint)D RUG SCREEN (chief complaint) Body mass index (BMI) 23.0-23.9, adultOpioid dependence, uncomplicated [facility]. [address] [place] [address], [id number] , [place]. tel:+ [phone] OFFICE/OUTPA TIENT VISIT, [facility], [address] [place] [address], [id number] , [place] tel:+ [phone] [facility] SUBOXONE (chief complaint)D RUG SCREEN (chief complaint) Body mass index (BMI) 24.0-24.9, adultUncomplicated opioid abuse [facility]. [address] [place] [address], [id number] , [place]. tel:+ [phone] OFFICE/OUTPA TIENT VISIT, [facility], [address] [place] [address], [id number] , [place] tel:+ [phone] [facility] SUBOXONE (chief complaint)D RUG SCREEN (chief complaint)S inus symptoms (acute) (chief complaint) Body mass index (BMI) 23.0-23.9, adultUncomplicated opioid abuseEnterococcus as the cause of diseases classified elsewhereSinusitis , bacterialOther specified bacterial agents as the cause of diseases classified elsewhere 9 [facility]. [address], [place], [id number] , [place]. tel:+ [phone] OFFICE/OUTPA TIENT VISIT, [facility], [address], [place], [id number] , [place] tel: [phone] [facility] SUBOXONE (chief complaint)D RUG SCREEN (chief complaint) Uncomplicated opioid abuseUTI (urinary tract infection) due to EnterococcusCervic al lymphadenitis Mar- 9 [facility]. [address], [place], [id number] , [place]. tel: [phone] OFFICE/OUTPA TIENT VISIT, [facility], [address] [place] [address], [id number] , [place] tel: [phone] [facility] SUBOXONE (chief complaint)D RUG SCREEN (chief complaint) Uncomplicated opioid abuseBody mass index (BMI) 24.0-24.9, adultUTI (urinary tract infection) due to EnterococcusEntero coccus as the cause of diseases classified elsewhereAlopeciaO ther depression 9 [facility]. [address], [place], [id number] , [place]. tel: [phone] OFFICE/OUTPA TIENT VISIT, [facility], [address] [place] [address], [id number] , [place] tel: [phone] [facility] SUBOXONE (chief complaint)D RUG SCREEN (chief complaint) Body mass index (BMI) 23.0-23.9, adultUncomplicated opioid abuseOther depression 9 [facility]. [address] [place] [address], [id number] , [place]. tel:+ [phone] OFFICE/OUTPA TIENT VISIT, [facility], [address] [place] [address], [id number] , [place] tel: [phone] [facility] SUBOXONE (chief complaint)D RUG SCREEN (chief complaint) Uncomplicated opioid abuseBody mass index (BMI) 22.0-22.9, adult Aug-0 9 [facility] DO Max. [address], [place], [id number] , [place]. tel:+ [phone] OFFICE/OUTPA TIENT VISIT, [facility], [address], [place], [id number] , [place] tel: [phone] [facility] SUBOXONE (chief complaint)D RUG SCREEN (chief complaint) Body mass index (BMI) 23.0-23.9, adultOpioid dependence, uncomplicatedOther depression 9 [facility] Max. [address], [place], [id number] , [place]. tel: [phone] OFFICE/OUTPA TIENT VISIT, [facility], [address] [place] [address], [id number] , [place] tel: [phone] [facility] SUBOXONE (chief complaint)D RUG SCREEN (chief complaint) Uncomplicated opioid abuse 9 [facility] DO Max. [address], [place], [id number] , [place]. tel: [phone] OFFICE/OUTPA TIENT VISIT, [facility], [address], [place], [id number] , [place] tel: [phone] [facility] SUBOXONE (chief complaint)D RUG SCREEN (chief complaint) Body mass index (BMI) 23.0-23.9, adultOpioid dependence, uncomplicated 9 [facility] DO Max. [address] [place] [address], [id number] , [place]. tel: [phone] OFFICE/OUTPA TIENT VISIT, [facility], [address] [place] [address], [id number] , [place] tel: [phone] [facility] SUBOXONE (chief complaint)D RUG SCREEN (chief complaint) Body mass index (BMI) 23.0-23.9, adultOpioid dependence, uncomplicated 9 Pav[facility] DO Max. [address] [place] [address], [id number] , [place]. tel:+ [phone] OFFICE/OUTPA TIENT VISIT, [facility], [address] [place] [address], [id number] , [place] tel: [phone] [facility] SUBOXONE (chief complaint)D RUG SCREEN (chief complaint) Body mass index (BMI) 22.0-22.9, adultOpioid dependence, uncomplicatedOther depression [facility] DO Max. [address] [place] [address], [id number] , [place]. tel: [phone] OFFICE/OUTPA TIENT VISIT, [facility], [address] [place] [address], [id number] , [place] tel: [phone] [facility] Suboxone (chief complaint)D rug Screen (chief complaint) Body mass index (BMI) 23.0-23.9, adultOpioid dependence, uncomplicatedOther depressionCrohn's disease with complication, unspecified gastrointestinal tract location 9 [facility] DO Max. [address] [place] [address], [id number] , [place]. tel: [phone] [facility], [address] [place] [address], [id number] , [place] tel: [phone] [facility] Suboxone (chief complaint)D rug Screen (chief complaint) Body mass index (BMI) 22.0-22.9, adultOpioid dependence, uncomplicatedCrohn 's disease with complication, unspecified gastrointestinal tract locationAlopecia 9 [facility] DO Max. [address] [place] [address], [id number] , [place]. tel:+ [phone] [facility], [address] [place] [address], [id number] , [place] tel: [phone] [facility] SUBOXONE (chief complaint)D rug Screen (chief complaint) Body mass index (BMI) 22.0-22.9, adultOpioid dependence, uncomplicated 8 9 Pavlock DO Max. [address], [place], [id number] , [place]. tel: [phone] [facility], [address], [place], [id number] , [place] tel: [phone] [facility] Substance Abuse (chief complaint) Opioid dependence, uncomplicated Apr-1 0-201 9 [facility] DO Max. [address], [place], [id number] , [place]. tel: [phone] [facility], [address] [place] [address], [id number] , [place] tel: [phone] [facility] Suboxone (chief complaint)D rug Screen (chief complaint) Uncomplicated opioid abuseNauseaBody mass index (BMI) 22.0-22.9, adultEncounter for test, result negative Apr-0 4-201 9 [facility] Max. [address] [place] [address], [id number] , [place]. tel: [phone] OFFICE/OUTPA TIENT VISIT, EST [facility], [address] [place] [address], [id number] , [place] tel: [phone] [facility] Suboxone (chief complaint)D rug Screen (chief complaint) Body mass index (BMI) 21.0-21.9, adultUncomplicated opioid abuseInfluenza A Mar-2 0-201 9 [facility] Max. [address], [place], [id number] , [place]. tel: [phone] [facility], [address] [place] [address], [id number] , [place] tel: [phone] [facility] Suboxone (chief complaint)D rug Screen (chief complaint) Body mass index (BMI) 21.0-21.9, adultUncomplicated opioid abuse Mar-0 7-201 9 [facility] DO Max. [address], [place], [id number] , [place]. tel: [phone] [facility], [address] [place] [address], [id number] , [place] tel: [phone] [facility] Suboxone (chief complaint)D rug Screen (chief complaint) Uncomplicated opioid abuseBody mass index (BMI) 21.0-21.9, adult 9 [facility]. [address], [place], [id number] , [place]. tel: [phone] [facility], [address] [place] [address], [id number] , [place] tel: [phone] [facility] Suboxone (chief complaint)d rug Screen (chief complaint) Body mass index (BMI) 21.0-21.9, adultUncomplicated opioid abuseOther depressionBronchit is 9 [facility]. [address] [place] [address], [id number] , [place]. tel: [phone] [facility], [address] [place] [address], [id number] , [place] tel: [phone] [facility] Suboxone (chief complaint)D rug screen (chief complaint) Body mass index (BMI) 21.0-21.9, adultUncomplicated opioid abuse 9 [facility]. [address] [place] [address], [id number] , [place]. tel: [phone] [facility], [address] [place] [address], [id number] , [place] tel: [phone] [facility] Suboxone (chief complaint) Body mass index (BMI) 21.0-21.9, adultOpioid dependence with withdrawalOther depressionCrohn's disease with complication, unspecified gastrointestinal tract location 9 [facility] DO Max. [address] [place] [address], [id number] , [place]. tel: [phone] [facility], [address] [place] [address], [id number] , [place] tel: [phone] [facility] Opioid dependence with withdrawalEncounte r for test, result negativeSegmental and somatic dysfunction of cervical regionVaginal discharge b-0 -201 9 Visci DO Cornelio. [address], [place], [id number] , [place]. tel: [phone] [facility], [address], [place], [id number] , [place] tel: [phone] [facility] Opioid dependence with withdrawalEncounte r for test, result negativeSegmental and somatic dysfunction of cervical regionVaginal discharge Feb-0 3- 9 Visci DO Grimes. [address], [place], [id number] , [place]. tel: [phone] [facility], [address], [place], [id number] , [place] tel: [phone] [facility] Opioid dependence with withdrawalEncounte r for test, result negativeSegmental and somatic dysfunction of cervical regionVaginal discharge Feb-0 2-201 9 Visci DO Grimes. [address], [place], [id number] , [place]. tel: [phone] [facility], [address], [place], [id number] , [place] tel: [phone] [facility] Opioid dependence with withdrawalEncounte r for test, result negativeSegmental and somatic dysfunction of cervical regionVaginal discharge Feb-0 9 Felicity Mejia. [address], [place], [id number] , [place]. tel: [phone] [facility], [address], [place], [id number] , [place] tel: [phone] [facility] Opioid dependence with withdrawalEncounte r for test, result negativeSegmental and somatic dysfunction of cervical regionVaginal discharge 9 Felicity Mejia. [address], [place], [id number] , [place]. tel: [phone] [facility], [address], [place], [id number] , [place] tel: [phone] [facility] suboxone dependence (chief complaint) Opioid dependence with withdrawal 9 Eleuterio Ingram. [address], [place], [id number] , [place]. tel: [phone] [facility], [address], [place], [id number] , [place] tel: [phone] [facility] Opioid dependence with withdrawalEncounte r for test, result negativeSegmental and somatic dysfunction of cervical regionVaginal discharge 8 Visci DO Cornelio. [address], [place], [id number] , [place]. tel: [phone] [facility], [address], [place], [id number] , [place] tel: [phone] [facility] Opioid dependence with withdrawalEncounte r for test, result negativeSegmental and somatic dysfunction of cervical regionVaginal discharge 8 Visci DO Cornelio. [address], [place], [id number] , [place]. tel: [phone] [facility], [address], [place], [id number] , [place] tel: [phone] [facility] Spine Care (chief complaint) Opioid dependence with withdrawalEncounte r for test, result negativeSegmental and somatic dysfunction of cervical regionVaginal discharge 8 Visci DO Cornelio. [address], [place], [id number] , [place]. tel: [phone] [facility], [address], [place], [id number] , [place] tel: [phone] [facility] Opioid dependence with withdrawalEncounte r for test, result negativeSegmental and somatic dysfunction of cervical regionVaginal discharge 0 8 Visci DO Cornelio. [address], [place], [id number] , [place]. tel: [phone] [facility], [address], [place], [id number] , [place] tel: [phone] [facility] Opioid dependence with withdrawalEncounte r for test, result negativeSegmental and somatic dysfunction of cervical regionVaginal discharge Atul-0 9-201 8 eFlicity Mejia. [address], [place], [id number] , [place]. tel: [phone] [facility], [address], [place], [id number] , [place] tel: [phone] [facility] vaginal discharge/i tching (chief complaint) Trichomonal vulvovaginitis Atul-0 8-201 8 Visci DO Grimes. [address], [place], [id number] , [place]. tel: [phone] [facility], [address], [place], [id number] , [place] tel: [phone] [facility] Spine Care (chief complaint)O pioid abuse (chief complaint) Opioid dependence with withdrawalEncounte r for test, result negativeSegmental and somatic dysfunction of cervical regionVaginal discharge Atul-0 8-201 8 Felicity Mejia. [address], [place], [id number] , [place]. tel: [phone] [facility], [address], [place], [id number] , [place] tel: [phone] [facility] Opioid dependence with withdrawalEncounte r for test, result negative Atul-0 7-201 8 Felicity Mejia. [address], [place], [id number] , [place]. tel: [phone] Family History Family Member Type Diagnosis Age At Onset Problem (finding) Family history of hyper tension Father Problem (finding) Alive and well Father Problem (finding) Substance abuse Father Problem (finding) hypertension Sister Problem (finding) Alive and well Mother Problem (finding) Substance abuse Problem (finding) Family history of Diabe akua mellitus Mother Problem (finding) alcoholism Sister Problem (finding) Substance abuse Mother Problem (finding) depression Sister Problem (finding) Irritable bowel syndrom e Mother Problem (finding) Alive and well Mother Problem (finding) hypercholesterolemia Father Problem (finding) cancer of colon Sister Problem (finding) depression Sister Problem (finding) Mental illness Immunizations Vaccine Date Status Comments Flulaval/ Fluarix refused Source: Ne w Immunization Record Influenza virus vaccine, quadrivalent, split virus, preservative free refused Source: New Immuniza tion Record Hep A (adult) refused Note: patient needed urine test ; Source: New Immunization Record Payers Payer name Insurance type Covered republican ID Authoriza tion(s) Medicaid [place] [facility] [place] [id number] [place] [facility] [place] [id number] [place] [facility] [place] [id number] Social History Type Description Quantity Date Captured Comments Sex Female Smoking Status No Information Sexual Orientation Straight or heterosexual Aug Gender Identity Female Chief Complaint And Reason For Visit No Information Reason For Referral Reason For Referral No Information Plan Of Treatment Date Type Action Status Goal Influenza vaccine. Due on Oc due Goal Tdap. Due on due Goal RLP. Due on due Goal Depression screening. Due on due Goal PRAPARE ASSESSMENT. Due on O due Goal Depression screening. Due on due Goal PRAPARE ASSESSMENT. Due on S due Goal RLP. Due on due Goal Tdap. Due on due Goal Influenza vaccine. Due on Se due Goal Dietary management education , guidance, and counseling completed Goal Dietary management education , guidance, and counseling completed Goal Tobacco cessation counseling completed Goal Dietary management education , guidance, and counseling completed Goal Tobacco cessation counseling completed Goal Tobacco cessation counseling completed Goal Dietary management education , guidance, and counseling completed Goal Dietary management education , guidance, and counseling completed Goal Tobacco cessation counseling completed Goal Dietary management education , guidance, and counseling completed Goal Tobacco cessation counseling completed Goal Dietary management education , guidance, and counseling completed Goal Tobacco cessation counseling completed Goal Dietary management education , guidance, and counseling completed Goal Lifestyle education regardin g diet completed Goal Tobacco cessation counseling completed Goal Dietary management education , guidance, and counseling completed Goal Tobacco cessation counseling completed Goal Dietary management education , guidance, and counseling completed Goal Tobacco cessation counseling completed Goal Dietary management education , guidance, and counseling completed Goal Tobacco cessation counseling completed Goal Dietary management education , guidance, and counseling completed Goal Tobacco cessation counseling completed Goal Dietary management education , guidance, and counseling completed Goal Dietary management education , guidance, and counseling completed Goal Tobacco cessation counseling completed Goal Dietary management education , guidance, and counseling completed Goal Tobacco cessation counseling completed Goal Dietary management education , guidance, and counseling completed Goal Tobacco cessation counseling completed Goal Dietary management education , guidance, and counseling completed Goal Tobacco cessation counseling completed Goal Tobacco cessation counseling completed Goal Dietary management education , guidance, and counseling completed Goal Tobacco cessation counseling completed Goal Dietary management education , guidance, and counseling completed Goal Tobacco cessation counseling completed Goal Dietary management education , guidance, and counseling completed Goal Dietary management education , guidance, and counseling completed Goal Tobacco cessation counseling completed Goal Tobacco cessation counseling completed Goal Dietary management education , guidance, and counseling completed Goal Tobacco cessation counseling completed Goal Dietary management education , guidance, and counseling completed Goal Tobacco cessation counseling completed Goal Dietary management education , guidance, and counseling completed Goal Tobacco cessation counseling completed Goal Dietary management education , guidance, and counseling completed Goal Tobacco cessation counseling completed Goal Dietary management education , guidance, and counseling completed Goal Tobacco cessation counseling completed Goal Dietary management education , guidance, and counseling completed Goal Tobacco cessation counseling completed Goal Dietary management education , guidance, and counseling completed Goal Tobacco cessation counseling completed Goal Dietary management education , guidance, and counseling completed Goal Tobacco cessation counseling completed Goal Dietary management education , guidance, and counseling completed Goal Dietary management education , guidance, and counseling completed Goal Dietary management education , guidance, and counseling completed Goal Dietary management education , guidance, and counseling completed Goal Tobacco cessation counseling completed Goal Tobacco cessation counseling completed Goal Dietary management education , guidance, and counseling completed Goal Tobacco cessation counseling completed Goal Dietary management education , guidance, and counseling completed Goal Tobacco cessation counseling completed Goal Dietary management education , guidance, and counseling completed Goal Tobacco cessation counseling completed Goal Tobacco cessation counseling completed Goal Dietary management education , guidance, and counseling completed Goal Tobacco cessation counseling completed Goal Dietary management education , guidance, and counseling completed Goal Tobacco cessation counseling completed Goal Dietary management education , guidance, and counseling completed Goal Dietary management education , guidance, and counseling completed Goal Tobacco cessation counseling completed Goal Tobacco cessation counseling completed Goal Tobacco cessation counseling completed Goal Tobacco cessation counseling completed Goal Dietary management education , guidance, and counseling completed Goal Dietary management education , guidance, and counseling completed Goal Tobacco cessation counseling completed Goal Tobacco cessation counseling completed Goal Dietary management education , guidance, and counseling completed Goal Tobacco cessation counseling completed Goal Dietary management education , guidance, and counseling completed Goal Tobacco cessation counseling completed Goal Dietary management education , guidance, and counseling completed Goal Tobacco cessation counseling completed Goal Dietary management education , guidance, and counseling completed Goal Tobacco cessation counseling completed Goal Dietary management education , guidance, and counseling completed Goal Tobacco cessation counseling completed Goal Dietary management education , guidance, and counseling completed Goal Tobacco cessation counseling completed Goal Dietary management education , guidance, and counseling completed Goal Tobacco cessation counseling completed Goal Dietary management education , guidance, and counseling completed Goal Tobacco cessation counseling completed Goal Dietary management education , guidance, and counseling completed Goal Tobacco cessation counseling completed Goal Dietary management education , guidance, and counseling completed Goal Tobacco cessation counseling completed Goal Dietary management education , guidance, and counseling completed Referral Ordered: MRI Cervical Spine W/O Dye [id number] Ordered: Rheumatology (related to Multiple joint pain) [id number] Ordered: Referrals: Rheumatology [id number] Ordered: X-Ray Exam Of Spine, Cerv, 2 Or 3 Views [id number] Ordered: Orthopedic Surgery (related to Elbow pain, right) [id number] Ordered: Referrals: Orthopedic Surgery [id number] Ordered: X-Ray Exam Of Elbow Minimum Of 3 Views Right [id number] Ordered: Gastroenterology (related to Crohn's disease with complication, unspecified gastrointestinal tract location) [id number] Ordered: Referrals: Gastroenterology [id number] Order: Lab OrderCompliance Drug Analysis, Ur ([id number]), Collected on: [id number]-11-2019Future Order: Lab OrderUrine, Naloxone Urine Cofirm ([id number]), Collected on: [id number]-[id number] Future Order: Lab OrderCompliance Drug Analysis, Ur ([id number]), Collected on: , Sent on: [id number] Order: Lab OrderUrine, Naloxone Urine Cofirm ([id number]), Collected on: , Sent on: [id number] Order: Lab OrderCompliance Drug Analysis, Ur ([id number]), Collected on: , Sent on: [id number] Order: Lab OrderUrine, Naloxone Urine Cofirm ([id number]), Collected on: , Sent on: [id number] Order: Lab OrderCt, Ng, Trich vag by REY ([id number]), Collected on: , Sent on: Future Order: Lab OrderCBC With Differential/Platelet ([id number]), Ordered on: [id number] Order: Lab OrderComp. 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 OARRS completed, last filled Suboxone 05/10TGrodi LPNPt is doing very well and is going to use this as her last dose and be done going into the new year and still cont with counseling Suboxone Patient presents for Suboxone refill, she has been on 4mg since 05/04/2020. Pt attends counseling with Alanna Garcia. OARRS completed, last filled Suboxone on 04/11/21. BTL for control. Pt verbally declines a Flu vaccine at this time. PraneethRNPatient was provided with a notification of provider leaving the practice, pt signed and verbalized understanding. KconleyRNRUDS: THC and BUPUrine HCG: negative. Pt states doing well not having any new problems ,above was reviewed and agreed with [facility] Suboxone Presents for Sub oxone refill, she has been on 4mg since 05/04/2020. Pt attends counseling with Alanna Garcia. OARRS completed, last filled Suboxone on 03/01/21. Denies other problems/concerns. BTL for control.RUDS: BUP and THCUrine HCG: negative Pt states doing well not having any new problems ,above was reviewed and agreed with [facility] UDS Rapid UDS + for BUP and THC. KetanKatt Phelps RN Suboxone Presents for Sub oxone refill, she has been on 4mg since 05/04/2020. Pt attends counseling with Alanna Garcia. OARRS completed, last filled Suboxone on 01/24/21. Denies other problems/concerns. BTL for control. Laureen Mattie RNPt is having more neck pain, and had x ray in the ER UDS UDS-BUP, THC. Laureen Blankenship RN suboxone Pt here for Subo xone refill, she has been on 4mg since 05/04/2020. Pt attends counseling with Alanna Garcia. OARRS completed, last filled Suboxone on 12/28/20. Pt states she was evaluated in [place] ER d/t L hand swelling and pain in her muscles and joints, pt requesting referral to Rheumatology JENNI Vargas Pt states doing well not having any other new problems ,above was reviewed and agreed with [facility] UDS UDS-positive for BUP, THC. JENNI Vargas Suboxone Pt here for Subo xone refill, she has been on 4mg since 05/04/20. Pt c/o increased urination, states she has been drinking more water but wants to make sure she does not have a UTI. JENNI Vargas Pt states doing well not having any other new problems ,above was reviewed and agreed with [facility] prophy prophy SUBOXONE Pt here for Subo xone refill, she has been on 4mg since 05-04-20. Pt attends counseling with Alanna Garcia. OARRS completed, last filled Suboxone on 11/03/20. JENNI Vargas Pt states doing well not having any new problems ,above was reviewed and agreed with [facility] UDS UDS-positive for BUP, THC. JENNI Vargas Barb Day UDS UDS performed, p t + for BUP & THCTGrodi REFRIGERATION SPECIALIST Suboxone Pt here today fo r Suboxone refill. PT HAS BEEN ON 4MG SINCE 05/04/2020. Pt is attending counseling with Alanna GarciaPt states that she feels her Effexor dose is too strong. PT states she does need something for depression and anxiety but states she does not feel like the effexor is the correct medication for her. OARRS completed, last filled Suboxone 10/06TGrodi REFRIGERATION SPECIALIST ,above was reviewed and agreed with [facility] UDS UDS performed, p t + for BUP + THCTGrodi REFRIGERATION SPECIALIST Suboxone Pt here today fo r Suboxone refill. PT HAS BEEN ON 4MG SINCE 05/06/2020.Talked to patient about decreasing dose. Pt states she wants to decrease dose next month. She states that summer would be better for her to decrease in dose. PT is attending counseling with Alanna Schneider completed, last filled Suboxone 09/28 for 5 daysTGrodi REFRIGERATION SPECIALIST Pt states doing well not having any new problems ,above was reviewed and agreed with [facility] UDS UDS positive for BUP and THC. JENNI Vargas suboxone Pt here for Subo xone refill, she has been on 4mg since 06/06/20. Pt attends counseling with Alanna Garcia. OARRS completed, last filled Suboxone on 07/30/20. S.Blankenship, RN Pt states doing well not having any new problems ,above was reviewed and agreed with [facility] Suboxone Here for Suboxon e refill. OARRS printed. Takes 4 mg since 05/06/2020. Last filled 06/30/2020. RUDS obtained : Positive for THC and buprenorphine. Sees Alanna CORTEZ at time of appt at [facility]. Lora Wren RN Pt states doing well not having any new problems ,above was reviewed and agreed with [facility] UDS UDS performed, p t + for BUP & THCTGrodi REFRIGERATION SPECIALIST Suboxone Pt here today fo r Suboxone refill. PT HAS BEEN ON 4MG SINCE 04/18/2020.Pt is attending counseling with Alanna Schneider completed, last filled Suboxone 06/03TGrodi REFRIGERATION SPECIALIST Pt states doing well not having any new problems ,above was reviewed and agreed with [facility] Cough Onset: sudden. T he patient describes the cough as non-productive. It occurs persistently. The problem has become gradually worse. Context: smoker. Symptoms are aggravated by laughing and lying down. Relieving factors include antihistamines and steroids. Associated symptoms include cough, fatigue, heartburn, hoarseness, post-nasal drainage, rhinitis, sinus pressure and sore throat. Pertinent negatives include chills, dyspnea, dyspnea on exertion, fever, hemoptysis, night sweats, pleuritic pain and wheezing. Suboxone Patient here for suboxone refill. Patient is on 4 mg since 04/18/20. Patient see's Alanna Garcia for counseling. Patient c/o fever and vomiting this morning. Patient has COVID test scheduled today at [facility] for upcoming procedure. Patient is wanting refill on Effexor 75mg and doesn't want 150mg. Kobe Bolivar.OARRS last fill suboxone-05/20/20-qt 7. Kobe Bolivar.UDS- (+) BUP (+) THC Kobe Bolivar. Suboxone PT here today fo r Suboxone refill. PT HAS BEEN ON 4MG SINCE 04/18/2020. Pt is attending counseling with Alanna Schneider completed, last filled Suboxone 05/06 for 14 daysTGrodi REFRIGERATION SPECIALIST Pt states doing well not having any new problems ,above was reviewed and agreed with [facility] UDS UDS performed, p t + for BUP & THCTGrodi REFRIGERATION SPECIALIST UDS UDS performed, p t + for BUP & THCTGrodi REFRIGERATION SPECIALIST Suboxone Pt here today fo r Suboxone refill. PT HAS BEEN ON 4MG SINCE 04/18/2020. PT is attending counseling with Alanna Schneider completed, last filled Suboxone 04/20 for 16 daysTGrodi REFRIGERATION SPECIALIST Pt states doing well not having any new problems ,above was reviewed and agreed with [facility] Suboxone Pt here today fo r Suboxone refill. PT HAS BEEN ON 6MG SINCE 01/07/20.Pt is attending counseling with Alanna Schneider completed, last filled Suboxone 04/04 for 16 daysTGrodi REFRIGERATION SPECIALIST Pt states doing well not having any new problems ,above was reviewed and agreed with [facility] UDS UDS performed, p t + for BUP & THCTGrodi REFRIGERATION SPECIALIST Suboxone Pt here tdoay fo r Suboxone refill. PT HAS BEEN ON 6MG SINCEPt is attending counseling with Alanna Garcia. Pt states she has not used Adderall since last visit. Pt states she has had a productive cough for the last 3-4 days. Pt states she has felt fatigued. Color of sputum yellow. Pt states she has a sore throat, headache, facial pressure, earaches. Pt denies fever or being around anyone + for COVID. OARRS completed, last filled Suboxone 03/28 for 9 daysTGrodi REFRIGERATION SPECIALIST ,above was reviewed and agreed with [facility] UDS UDS performed, p t + for BUP & THCTGrodi REFRIGERATION SPECIALIST UDS UDS performed, p t + for THC, BUP & AMPTGrodi REFRIGERATION SPECIALIST Suboxone Pt here today fo r Suboxone tab refill. PT HAS BEEN ON 6MG SINCE 01/07/2020. Pt is attending counseling with Alanna Garcia. Pt admits that she will probably be + for Adderall. Pt admitted to taking some Thursday and Thursday. Pt states she had all her kids and her sisters kids and her sister skipped out on her visitation with them. OARRS completed, last filled Suboxone 03/15 for 16 daysTGrod LPNPt states she went over all this with alnana today and is going to work on making it better ,above was reviewed and agreed with [facility] UDS UDS performed, p t + for BUP, THC & Faint OXY. UDS will be sent out. TGrodi [facility] Suboxone Pt here today fo r Suboxone tab refill. PT HAS BEEN ON 6MG SINCE 01/07/2020PT is attending counseling with Alanna Schneider completed, last filled Suboxone 03/06/20rodi REFRIGERATION SPECIALIST Pt states doing well not having any new problems ,above was reviewed and agreed with [facility] UDS UDS performed, p t + for BUP, AMP & THCTGrodi [facility] Suboxone PT here today fo r Suboxone tab refill. PT HAS BEEN 6MG SINCE 01/07/20Pt states that she is not good today. Pt is very short in words today. Pt states she is concerned because Dr. Pride never told her children services would be called. Pt got very emotional and started crying. Pt states she is going to be positive for AMP again. Pt states she last used it 2 days ago. pt is attending counseling with Alanna Schneider completed, last filled Suboxone 02/20 for 14 daysTGrod LPNPt states she is sorry she made this mistake, she was having depression issues and realized using is not a good choice to help with mood and will not do it again. ,above was reviewed and agreed with [facility] Suboxone Pt here today fo r Suboxone film refill. PT HAS BEEN ON 6MG SINCE 01/07/20. Pt is attending counseling with Alanna Schneider [facility] performed, p t + for BUP, AMP & THCTGrodi [facility] hair loss Pt states her monte ir loss is back again, this time it is painful/ tender with some bumps that are coming up too, Pt notes that he bumps seem to come with her alopecia but it is normally not tender UDS UDS performed, p t + for BUP + THC. TGrodi REFRIGERATION SPECIALIST Suboxone Pt here today fo r Suboxone tab refill. PT HAS BEEN ON 6MG SINCEPT states things are going well but has had a lot of stress in her life. Pt states she thinks she wants to decrease her dose of Effexor. Pt states she feels like she is withdrawing if she does not take it regularly and does not want to feel this way. PT is attending counseling with Alanna Schneider completed, last filled TGrodi REFRIGERATION SPECIALIST Pt states doing well not having any new problems ,above was reviewed and agreed with [facility] UDS UDS +BUP, THC. Ketan Ghotra RN SUBOXONE Pt here for Subo xone refill, she has been on 6mg since 01/06/20. Pt attends counseling with Alanna Garcia. Pt states that she is suppose to go to counseling after this appt but is unable to go d/t personal issues at home. OARRS COMPLETED, LAST FILLED SUBOXONE ON 01/07/20. JENNI Vargas Pt states doing well not having any new problems ,above was reviewed and agreed with [facility] UDS UDS performed, p t + for BUP & THCTGrodi REFRIGERATION SPECIALIST SUBOXONE Pt here today fo r Suboxone tab refill. PT HAS BEEN ON 14MG SINCE 04/2019. Pt had a counseling apt with Alanna Garcia today. PT stated today that she was only taking half of a tablet per day. PT states she has been doing this for a couple of weeks now and is feeling okay. OARRS completed, last filled 12-09TGrodi REFRIGERATION SPECIALIST Pt states doing well not having any new problems ,above was reviewed and agreed with [facility] suboxone Pt states she is doing much better, today she admitted she was using Adderall on and off in the past, but has stopped and she worried because he does not like to admit she was struggling. Pt otherwise states she is going to counseling but would like to change to here maybe because of drive time issues she will think about it and let us know. UDS was positive for BUP and THC, the specimen was miss place so was not sent out for confirmatory SUBOXONE Pt here today fo r Suboxone tab refill. PT HAS BEEN ON 14MG SINCE 05/05/19pt is attending counseling at [facility] OARRS completed, [facility] Pt states doing well not having any new problems Pt is having some fatigue but with history of crohns this is not new ,above was reviewed and agreed with [facility] DRUG SCREEN Rapid urine drug screen performed, pt + for BUP & THCTGrodi REFRIGERATION SPECIALIST Rash The patient pres ents for Rash. This episode began 5 days ago. The symptom(s) are described as improving. Affected area(s) include left arm. The patient describes the affected area(s) as itchy and red. The patient denies aggravating factors such as clothing, dry air, foods, lotions, sun exposure and skin trauma/friction. The symptoms are not relieved by antifungal cream, antihistamines or avoiding offending agent(s). Associated symptoms include erythema (skin) and pruritus. Relevant history negative for family history of allergies, family history of asthma, family history of dermatitis and history of allergies. SUBOXONE Pt here for Subo xone refill. Pt has been on 14mg since 05/05/19. Pt has note in her chart stating she has completed counseling. OARRS COMPLETED, LAST FILLED SUBOXONE 09/16 FOR 15 DAY SUPPLY. Pt c/o L arm rash, c/o itching, denies using anything for rash. Pt denies any other issues or concerns. Urvashi ARTEAGA UDS UDS +BUP, THC. Ketan Blankenship RN SUBOXONE Pt here for Subo xone refill. Pt has been on 14mg since 05/05/19 . Pt attending counseling at [facility]. OARRS COMPLETED, LAST FILLED SUBOXONE ON 09/16/18 FOR A 15 DAY SUPPLY. Pt denies any other issues or concerns. Urvashi ARTEAGA Pt states doing well not having any new problems ,above was reviewed and agreed with [facility] UDS UDS+ BUP, THC. Ketan Blankenship [facility] UDS UDS +BUP, THC SR archuleta RN SUBOXONE Pt here today fo r Suboxone refill. Pt has been on 14mg since 05/05/19. Pt is attending counseling at [facility]. OARRS COMLETED, LAST FILLED SUBOXONE ON 09/01/19. Pt denies any other issues or concerns. Urvashi ARTEAGA Pt states doing well not having any new problems ,above was reviewed and agreed with [facility] DRUG SCREEN Rapid urine drug screen performed, pt + for BUP & THCTGrodi REFRIGERATION SPECIALIST SUBOXONE Pt here today fo r Suboxone tab refill. PT HAS BEEN ON 14MG SINCE 05/05/19Pt is attending counseling at [facility] in [place]. OARRS completed, last filled Suboxone 08/25 for 7 daysTGrodi REFRIGERATION SPECIALIST Pt states doing well not having any new problems ,above was reviewed and agreed with [facility] SUBOXONE Pt here today fo r Suboxone tab refill. PT HAS BEEN ON 14MG SINCE 05/05/19Pt is being rude today and irritated because she has been sitting in the waiting room waiting to be seen. She is complaining that people were late due to apts and I told her Dr. Pride had an emergency, & she goes well thats not what I was told, but whatever . Pt states she is attending counseling at [facility] in [place]. Pt states the counselor cancelled last apt but is rescheduled. Pt had not been seen since 07/07. OARRS completed, last filled Suboxone 08/11TGrodi LPNPt calmed by the time I seen her, she just does not get why she can not control her temper when she is told she will have to wait DRUG SCREEN Rapid urine drug screen performed, pt + for BUP & THCTGrodi LPNLast UDS, pt was + for THC, & AMPTried to schedule pt back for a week and she refused. She said that she cant be coming here every week. She states she is not using anything, I told her her urine is sent out and she is testing + and if she is not using it is probably in her marijuana. I told patient that we encourage her to stop using. Pt states, Dr. pride knows I will never stop using marijuana and that is how I am getting off Subs so quickly. I am going to go get my marijuana card . I told pt this is fine but she will be seen biweekly till there is no marijuana. I told pt this is not my decision to bring back in 1 week, & she needs monitored more closely due to testing + for these substances. TGrodi [facility] SUBOXONE Pt here today wi th 4 year old son for Suboxone tab refill. P THAS BEEN ON 14MG SINCE 05/05/19Pt is attending counseling at [facility]. PT NEEDS REFILLS ON EVERYTHING BECAUSE THE PHARMACY SHE WAS USING CLOSED. OARRS completed, last filled Suboxone 07/28 for 14 daysTGrodi REFRIGERATION SPECIALIST Pt states doing well not having any new problems ,above was reviewed and agreed with [facility] DRUG SCREEN Rapid urine drug screen performed, pt + for BUP, THC, FAINT AMPTGrodi [facility] SUBOXONE Pt here today fo r Suboxone tab refill. PT HAS BEEN ON 14MG SINCE 05/05/19Pt is attending counseling at [facility] completed, last filled Suboxone 07/21 & 07/23TGrodi REFRIGERATION SPECIALIST Pt states doing well not having any new problems ,above was reviewed and agreed with [facility] DRUG SCREEN Rapid urine drug screen performed, pt + for BUP & THCTGrodi [facility] DRUG SCREEN Rapid urine drug screen performed, pt + for BUP, THC, & FAINT PCPTGrodi [facility] Musculoskeletal pain Onset: 2 mo nths ago. It occurs intermittently and is fluctuating. Location: elbow. The pain is throbbing. Context: there is no injury. The pain is aggravated by movement. The pain is relieved by rest. Associated symptoms include decreased mobility, difficulty initiating sleep, numbness, spasms, swelling and tingling in the arms. Pertinent negatives include bruising, crepitus, joint instability, joint tenderness and popping. Hand Dominance: right. SUBOXONE Pt here today fo r Suboxone tab refill. PT HAS BEEN ON 14MG SINCE 05/05/19[facility] BUSPAR, IBUPROFEN, TRAZODONE, & VISTARILOARRS completed, last filled Suboxone 07/07 for 14 daysTGrodi REFRIGERATION SPECIALIST URINE DRUG Urine Drug- Posi tive THC, BUP and faint line for AMP.Kobe Bolivar. SUBOXONE Pt here today fo r Suboxone tab refill. PT HAS BEEN ON 14MG SINCE 05/05/19.Pt states she is attending counseling at [facility] today at 1pm. Pt had pills and bottle today.Pt needs refills on Buspirone, colace, depakote and Effexor.Pt complains of ear pain for a few days. Pt says today she had an episode of dizziness while sitting in fast food drive thru today. Pt says she had to site there for a few. Pt is worried she has fluid in her ears.OARRS completed- Suboxone filled 06/23/19.Kobe Bolivar. Dizziness Urine Drug Screen Here for namrata michael urine drug screen, positive for buprenorphine and THC, negative for all else. Has Suboxone bottle with her: 10 tabs in bottle, she states there is a half tab at home in her pill-cutter. She states that told her to alternate between 1.5 and 2.5 tabs every day. Lora Wren RN Musculoskeletal pain Onset: 2 we eks ago. It occurs constantly and is stable. Location: right elbow. The pain is aching and burning. Context: there is no injury. The pain is aggravated by movement. The pain is relieved by rest. Associated symptoms include bruising, decreased mobility, joint tenderness and tingling in the arms. Pertinent negatives include crepitus, joint instability, limping, locking and numbness. Hand Dominance: right. DRUG SCREEN Rapid urine drug screen performed, pt + for BUP, THC & ETG. FAINT AMP. Pt denies using any type of AmphetamineTGrodi REFRIGERATION SPECIALIST SUBOXONE Pt here today fo r Suboxone tab refill. PT HAS BEEN ON 14MG SINCE 05/05/19.Pt states that her elbow and her whole body hurts. Pt states she has been seeing a chiropractor and states she has not seen him in a week and feels like she was hit by a truck. Pt [facility] NEED[facility] REFILLS ON TRAZODONE & BUSPAROARRS completed, last filled Suboxone 06/03 for 21 daysTGrodi REFRIGERATION SPECIALIST DRUG SCREEN Rapid urine drug screen performed, pt + for BUP & THCTGrodi REFRIGERATION SPECIALIST SUBOXONE Pt here today fo r Suboxone tab refill. PT HAS BEEN ON 14MG SINCE 05/05/19Pt has congestion states her face, neck were swollen. Pt is wondering about her Thyroid. Pt states she her family has Thyroid problems and it worries her. Pt is not sure if it is stress or what. Pt is attending counseling at [facility] in [place]. Pt states she thinks she may need a higher dose of the Trazodone. Pt has had nightmares the past few nights. OARRS completed, last filled Suboxone 05/19TGrodi LPNPt states she is doing well with the dose of suboxone but these other problems concern her. DRUG SCREEN Rapid urine drug screen performed, pt + for BUP & THCTGrodi REFRIGERATION SPECIALIST SUBOXONE Pt here today fo r Suboxone tab refill. PT HAS BEEN ON 14MG SINCE 05/05/19. Pt had her dose decreased. Pt states she did well with the dose decrease, had no issues. Pt is attending counseling at [facility]. PT NEEDS REFILLS ON BUSPAR, IMITREX, TRAZODONE, & VISTARIL. Pt is also requesting Ibuprofen 800 instead of 600mg. OARRS completed, last filled Suboxone 05/05 for 14 daysTGrodVirginia [facility] SystemN Pt states doing well not having any new problems ,above was reviewed and agreed with SUBOXONE PT here today fo r Suboxone tab refill. PT HAS BEEN ON 16MG SINCE AUG 2018. Pt is attending counseling at [facility] in [place]. PT NEEDS REFILL ON IMITREXPt states the Doxycycline in hard on her stomach so she has only been taking 1 a day instead of 2. PT had tubal ligation. OARRS completed, last filled Suboxone 04/21 for 15daysTGrodi REFRIGERATION SPECIALIST Pt states doing well not having any new problems ,above was reviewed and agreed with DRUG SCREEN Rapid urine drug screen performed, pt + for BUP, THC & VERY FAINT AMPTGrodi REFRIGERATION SPECIALIST SUBOXONE Pt here today fo r Suboxone tab refill. PT HAS BEEN ON 16MG SINCE AUG 2018. Pt states she is still having pain on her R side head, & face. Pt states this states this has been going on and worries her because of her family history. Pt has taken 7 of the Imitrex since prescription written on 04/10Pt is attending counseling at [facility]. PT NEEDS REFILL ON IMITREX, Pt is requesting her Buspar to be increased because she is very anxious and wants a prescription for Ibuprofen. PHQ indicates moderate severe depression. PT has tubal ligation. OARRS completed, last filled Suboxone 04/07 for 15 daysTGrodi REFRIGERATION SPECIALIST DRUG SCREEN Rapid urine drug screen performed, pt + for BUP & THCTGrodi REFRIGERATION SPECIALIST Sinus symptoms (acute) Onset: 03 Weeks. The severity of the problem is moderate. The symptoms are recurring. The right side is affected. Pertinent/initial symptoms include facial pain and facial pressure. Symptoms are associated with smoke exposure and tobacco use. Tobacco cessation was discussed. Symptoms are not associated with asthma, dental infection, environmental allergies or recent air travel. Aggravating factors include leaning forward. Symptoms are not aggravated by allergens or dry air. Symptoms are relieved by antihistamines. Symptoms are not relieved by pain medication. Associated symptoms include cough, headache, orbital swelling and tooth pain. Pertinent negatives include anosmia, fever, immunosuppression or tooth sensitivity. SUBOXONE Pt here today fo r Suboxone film refill. Pt is attending counseling at [facility]. Pt states she has a bump on her jaw line that is bothering her. Pt states it just started bothering again about 2 weeks ago. PT NEEDS REFILLS FOR DEPAKOTE, EFFEXOR 75, TRAZODONE, Pt had her tubes tied so this is why she is not on control. PHQ indicates moderate severe depression.OARRS completed, last filled SuboxoneTGrodi LPNPt state she is just having a lot of fatigue and not feeling well. DRUG SCREEN Rapid urine drug screen performed, pt + for BUP & THCTGrodi REFRIGERATION SPECIALIST DRUG SCREEN Rapid urine drug screen performed, pt + for BUP, THC & FAINT AMPTGrodi REFRIGERATION SPECIALIST SUBOXONE Pt here today fo r Suboxone tab refill. PT is attending counseling with [facility] in [place]. PT states she is not sure if her medications are working anymore. PT states her alopecia is getting worse, she feels more depressed, sleeping alot only doing things that are a necessity. Pt states she thinks her sleeping pattern is some of her problem. She states her mom tells her not to take the Trazodone but states she is up many times in the night. PHQ indicates moderate severe depression. Pt states she is having issues with her anxiety. PT thinks she may have a UTI, pt has frequent urination and has bright red blood when she urinates but states she is not on her menstrual cycle. OARRS completed, last filled Suboxone 03/10 for 15 daysTGrodi LPNPt alopecia is bothering her more and the areas are tender SUBOXONE Pt here today fo r Suboxone tab refill. PT is attending counseling at [facility] in [place]. Pt states things are going really well for her.Pt states that the pharmacy asked her if she is too be on both doses of Effexor. Pt states they are on back order and do not have the medication. PT NEEDS REFILLS ON BUSPAR, COLACE, EFFEXOR, & TRAZODONE. OARRS completed, last filled Suboxone 02/24 for 15 daysTGrodi REFRIGERATION SPECIALIST Pt states doing well not having any new problems ,above was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 and counseling Related to Body mass index (BMI) 22.0-22.9, adult Giving encouragement to exercise Related to Body mass index (BMI) 21.0-21.9, adult Dietary management e ducation, guidance, and counseling Related to Body mass index (BMI) 21.0-21.9, adult Giving encouragement to exercise Related to Body mass index (BMI) 21.0-21.9, adult Dietary management e ducation, guidance, and counseling Related to Body mass index (BMI) 21.0-21.9, adult Giving encouragement to exercise Related to Body mass index (BMI) 21.0-21.9, adult Dietary management e ducation, guidance, and counseling Related to Body mass index (BMI) 21.0-21.9, adult Giving encouragement to exercise Related to Body mass index (BMI) 21.0-21.9, adult Dietary management e ducation, guidance, and counseling Related to Body mass index (BMI) 21.0-21.9, adult Giving encouragement to exercise Related to Body mass index (BMI) 21.0-21.9, adult Dietary management e ducation, guidance, and counseling Related to Body mass index (BMI) 21.0-21.9, adult Giving encouragement to exercise Related to Body mass index (BMI) 21.0-21.9, adult Dietary management e ducation, guidance, and counseling Related to Body mass index (BMI) 21.0-21.9, adult Assessments Type Assessment Date assessment Opioid dependence, uncomplicated impression Patient reported sharee t she struggles with addiction and wants to feel better. Patient has a recent relapse with using Adderall. Goals Health Concern Goal Type Priority Status Date Patient needs education to manage opioid dependence. Pt has been on 6mg of Suboxone since 01/07/2020. Patients urine from last visit questionable if its hers. Get oral swab on patient and a urine to send out and compare. Patient Goal New Patient Care Teams Name Effective Dates (start - stop) Status Members No Information
[2025-06-27] VITALS (17 sets, daily range): BP systolic 103–121; BP diastolic 63–81; PULSE 104; TEMP 37.1; O2SAT 98–100; BMI 18.2
--- NOTE | 2025-06-27 19:54 | US_ITS ---
The [address] [address] Patient Name: XOCHITL HERNADEZ MRN: [id number] date: 1985 Sex: F Assigned Patient Location: ED.MAIN Current Patient Location: ED.MAIN Accession/Order Number: [id number] Exam Date: 06/27/2025 20:32 Report Date: 06/27/2025 21:24 At the request of: OJ CORBETT Procedure: US right upper quadrant EXAMINATION TYPE: US right upper quadrant DATE OF EXAM ORDERED: 06/27/2025 9:14 PM HISTORY: RUQ pain COMPARISON: NONE TECHNIQUE: Realtime imaging limited to the right upper quadrant was performed. FINDINGS: The gallbladder appears within normal limits without evidence of cholelithiasis. Gallbladder wall measures 2 mm in thickness. Common bile but measures 4 mm in diameter. No intrahepatic or extrahepatic biliary dilatation is seen. The liver is normal in echo reflectivity. Partial visualization of the right kidney reveals no gross hydronephrosis. Partial visualization of the pancreas reveals no abnormality. US/US right upper quadrant IMPRESSION: Normal right upper quadrant ultrasound. Impression dictated by: Kendrick Oakes M.D. 06/27/2025 9:24 PM Dictation Location: [place] [address] Electronically authenticated by: [id number] Y Date: 06/27/2025 21:24
--- NOTE | 2025-06-27 19:58 | ED.GENADUL1 ---
Documented by User: ARIC Glass 06/27/25 21:56 HPI HPI - General Adult General Chief complaint: Abdominal Pain Stated complaint: Abdominal pain Time Seen by Provider: 06/27/25 19:44 Source: patient Mode of arrival: walk-in Limitations: no limitations History of Present Illness HPI narrative: Patient is a 39-year-old female with a PMH of Crohn's disease that presents with complaints of new onset right upper quadrant abdominal pain. She normally has abdominal pain and nausea but states that this RUQ pain is new and different. She did go to the [facility] ER on 06/21 and was diagnosed with colitis and a UTI and started on Cipro and Flagyl. She reports no improvement with these medications. She was last in this ER on 05/08 and diagnosed with constipation and intussusception and ended up being transferred to [facility]. No surgery was needed. She denies any previous abdominal surgeries, other than getting her tubes tied. She has been having chills and hot flashes at home but has not taken her temperature. Her last BM was yesterday but she states she still feels constipated and dehydrated. She is still having urinary symptoms such as slow to start urinating. Related Data Home Medications ?Medication ?Instructions ?Recorded ?Confirmed ciprofloxacin HCl 500 mg tablet 500 mg PO Q12H 06/27/25 06/27/25 cyclobenzaprine 10 mg tablet 10 mg PO Q8H PRN pain 06/27/25 06/27/25 fluoxetine 10 mg capsule 10 mg PO DAILY 06/27/25 06/27/25 metronidazole 500 mg tablet 500 mg PO Q12H 06/27/25 06/27/25 Allergies Allergy/AdvReac Type Severity Reaction Status Date / Time No Known Drug Allergies Allergy Verified 06/27/25 19:40 Opioid HPI Opioid Management Most Recent Opioid Data: Last Pain Scale 9 06/27/25, 21:25 Last ED Pain Assessment 06/27/25, 21:25 Last MAR Pain Assessment 06/27/25, 20:45 Review of Systems ROS Status of ROS 10 or more systems reviewed and unremarkable except as noted in history and below PFSH PFS Medical History (Updated 06/27/25 @ 23:58 by Stevenson Luis MD) Crohn's disease ?K50.90 - Crohn's disease, unspecified, without complications (ICD-10) Surgical History (Updated 05/08/25 @ 06:08 by Florencia Booth) History of bilateral salpingectomy ?Z90.79 - Acquired absence of other genital organ(s) (ICD-10) Social History Little interest or pleasure in doing things: not at all Feeling down, depressed, or hopeless: not at all Exam Narrative Exam Narrative: General: No distress, age-appropriate Skin: Warm, dry, no pallor. No rash. Head: Normocephalic, atraumatic. Neck: Supple, non-tender. Eye: Pupils are equal, round and EOMI. No scleral icterus. Ears, Nose, Mouth, and Throat: No nasal mucosal hypertrophy. Oral mucosa is moist, no posterior oropharynx erythema, uvula is mid-line Cardiovascular: Regular Rate and Rhythm without murmur, gallop or rub. Respiratory: No accessory muscle use or respiratory distress. Lungs are clear to auscultation, no wheezing, rales or rhonchi Chest Wall: no tenderness Musculoskeletal: Full ROM of all extremities, no calf or popliteal tenderness GI: Abdomen is soft, non-distended, RUQ exquisitely tender to palpation. No masses appreciated. No rebound, guarding, or rigidity noted. Neurological: A&O x4. No cranial nerve dysfunction observed. No truncal ataxia. Moves all extremities. Sensation intact. Psychiatric: Cooperative and interactive. Normal mood and affect. Constitutional Vital Signs, click to edit/add: Last Vital Signs Temp 98.7 F 06/27/25 19:34 Pulse 104 H 06/27/25 19:34 Resp 18 06/27/25 19:34 BP 108/63 06/27/25 21:58 Pulse Ox 100 06/27/25 22:00 O2 Del Method Room Air 06/27/25 19:34 Documenting provider has reviewed patient's vital signs: yes Course Vital Signs Vital signs: Vital Signs Temperature 98.7 F 06/27/25 19:34 Pulse Rate 104 H 06/27/25 19:34 Respiratory Rate 18 06/27/25 19:34 Blood Pressure 121/81 06/27/25 19:34 Pulse Oximetry 98 06/27/25 19:34 Oxygen Delivery Method Room Air 06/27/25 19:34 Temperature 98.7 F 06/27/25 19:34 Pulse Rate 104 H 06/27/25 19:34 Respiratory Rate 18 06/27/25 19:34 Blood Pressure 108/63 06/27/25 21:58 Pulse Oximetry 100 06/27/25 22:00 Oxygen Delivery Method Room Air 06/27/25 19:34 Medical Decision Making MDM Narrative Medical decision making narrative: 39-year-old female with Crohn?s disease presents with new and atypical RUQ abdominal pain not improved with recent antibiotics for colitis and UTI. Differential includes hepatobiliary pathology (cholelithiasis/cholecystitis), pancreatitis, Crohn?s flare or complications such as obstruction or abscess, recurrent intussusception, and persistent UTI/pyelonephritis. On arrival patient laying comfortably on the ED cart, exquisitely tender when you palpate the RUQ of the abdomen. Mild tachycardia, 104, BP hemodynamically stable. IV access obtained and 1 L normal saline given for hydration. Symptomatic treatment provided with 0.5 mg IV Dilaudid and 4 mg IV Zofran. CBC, CMP, lipase, and UA ordered. RUQ ultrasound ordered to further assess for gallbladder or biliary disease. [facility] medical records contacted for lab and imaging results from her ED visit on 06/21 with her permission. Current labs show Hgb 11 g/dL (down from 12.3 on 05/08), WBC 8.4 ?10?/?L without left shift, electrolytes and renal function within normal limits, lipase 53 U/L (WNL), and negative hCG. No acute leukocytosis or metabolic derangements. RUQ ultrasound normal, no gallstones, gallbladder appears normal. UA negative occult blood, negative nitrates, negative leuk esterase, 0?2 WBCs, trace bacteria, UTI appears to have resolved. I discussed lab and imaging results thus far with patient. I did order a CT abdomen/pelvis with IV contrast. She requests something for anxiety as she notes her Crohn's has been in remission until her father recently and she has been extremely stressed. 0.5 mg IV Ativan given. CT abdomen and pelvis with IV contrast results from [facility] from 06/21/25 reviewed and there is mild dilation and wall thickening of the jejunum, may represent infectious or inflammatory enteritis. At this time, 2200, my shift is coming to an end and patient care discussed and transferred to Dr. Luis. Disposition pending pain control and CT results. Differential Diagnosis Differential Diagnosis: Cholecystitis, recurrent intussusception, Crohn's flare, pancreatitis Lab Data Lab results reviewed: Yes I reviewed the patient's lab results Labs: Lab Results 06/27/25 06/27/25 Range/Units 20:23 21:20 WBC 8.4 (4.0-11.0) 10^3/uL RBC 3.57 L (4.20-5.40) 10^6/uL Hgb 11.0 L (12.0-16.0) g/dL Hct 33.1 L (36.0-48.0) % MCV 92.7 (81.0-99.0) fL MCH 30.8 (26.7-34.0) pg MCHC 33.2 (29.9-35.2) g/dL RDW 13.2 (11.0-15.0) % Plt Count 348 (150-450) 10^3/uL MPV 9.0 L (9.5-13.5) fL Neut % (Auto) 64.7 (43.0-75.0) % Lymph % (Auto) 24.3 (20.5-60.0) % Glasscock % (Auto) 8.1 (1.7-12.0) % Eos % (Auto) 1.9 (0.9-7.0) % Baso % (Auto) 0.6 (0.2-2.0) % Neut # (Auto) 5.4 (1.4-6.5) 10^3/uL Lymph # (Auto) 2.0 (1.2-3.8) 10^3/uL [place] # (Auto) 0.7 (0.3-0.8) 10^3/uL Eos # (Auto) 0.2 (0.0-0.7) 10^3/uL Baso # (Auto) 0.1 (0.0-0.1) 10^3/uL Abs Immat Gran (auto) 0.03 (0.00-0.03) 10^3/uL Imm/Tot Granulo (auto) 0.4 (0.0-0.5) % Sodium 142 (136-145) mmol/L Potassium 4.0 (3.5-5.1) mmol/L Chloride 107 (98-107) mmol/L Carbon Dioxide 30.2 (21.0-32.0) mmol/L Anion Gap 8.8 BUN 13.0 (7.0-18.0) mg/dL Creatinine 0.71 (0.55-1.02) mg/dL Est GFR ( Amer) >60 (>=60 mL/min/1.73m^2) Est GFR (Non-Af Amer) >60 (>=60 mL/min/1.73m^2) BUN/Creatinine Ratio 18.3 Glucose 97 (74-106) mg/dL Calcium 9.0 (8.5-10.1) mg/dL Total Bilirubin 0.2 (0.2-1.0) mg/dL AST 17 (15-37) U/L ALT 30 (14-59) U/L Alkaline Phosphatase 52 (46-116) U/L Total Protein 6.4 (6.4-8.2) g/dL Albumin 3.5 (3.4-5.0) g/dL Globulin 2.9 g/dL Albumin/Globulin Ratio 1.2 Lipase 53.0 (16.0-77.0) U/L Serum HCG, Qual Negative (NEGATIVE) Urine Color Lt. yellow (YELLOW) Urine Clarity Clear (CLEAR) Urine pH 7.0 (5.0-9.0) Ur Specific [place] 1.015 (1.005-1.025) Urine Protein Negative (NEG/TRACE) mg/dL Urine Glucose (UA) Negative (NEGATIVE) mg/dL Urine Ketones Negative (NEGATIVE) mg/dL Urine Occult Blood Negative (NEGATIVE) Urine Nitrite Negative (NEGATIVE) Urine Bilirubin Negative (NEGATIVE) Urine Urobilinogen 0.2 (0.2-1.0) EU/dL Ur Leukocyte Esterase Negative (NEGATIVE) Urine RBC 0-2 (0-2) #/HPF Urine WBC 0-2 A (NONE SEEN) #/HPF Ur Squamous Epith Cells Rare (NONE/RARE) #/LPF Urine Crystals None seen (None Seen) #/HPF Urine Bacteria Trace A (NONE SEEN) #/HPF Urine Casts None seen (NONE SEEN) #/LPF Urine Mucus None seen (NONE SEEN) Imaging Data US - abdomen: Attestation: I have reviewed the pertinent imaging results. Radiologist's impression: ITS Impressions Upper Quadrant Ultrasound 06/27/25 19:54 IMPRESSION: Normal right upper quadrant ultrasound. Impression dictated by: Kendrick Oakes M.D. 06/27/2025 9:24 PM Dictation Location: [employer] [id number] Electronically authenticated by: [id number] Y Date: 06/27/2025 21:24 Abdomen/Pelvis CT 06/27/25 21:45 IMPRESSION: Moderate stool burden within the colon. Findings may raise possibility for constipation. Appendix is not identified. No pericecal inflammatory changes. Otherwise negative acute inflammatory process or bowel obstruction. Impression dictated by: Jonathan Garcia M.D. 06/27/2025 11:18 PM Dictation Location: [employer] Electronically authenticated by: [id number] Y Date: 06/27/2025 23:18 Chest x-ray: Radiologist's impression: ITS Impressions Upper Quadrant Ultrasound 06/27/25 19:54 IMPRESSION: Normal right upper quadrant ultrasound. Impression dictated by: Kendrick Oakes M.D. 06/27/2025 9:24 PM Dictation Location: [email or web address] Electronically authenticated by: [id number] Y Date: 06/27/2025 21:24 Abdomen/Pelvis CT 06/27/25 21:45 IMPRESSION: Moderate stool burden within the colon. Findings may raise possibility for constipation. Appendix is not identified. No pericecal inflammatory changes. Otherwise negative acute inflammatory process or bowel obstruction. Impression dictated by: Jonathan Garcia M.D. 06/27/2025 11:18 PM Dictation Location: [employer] Electronically authenticated by: [id number] Y Date: 06/27/2025 23:18 Discharge Plan Discharge Chief Complaint: Abdominal Pain Clinical Impression: Crohn disease, Constipation Patient Disposition: Home, Self-Care Prescriptions / Home Meds: No Action cyclobenzaprine 10 mg tablet 10 mg PO Q8H PRN (Reason: pain) metronidazole 500 mg tablet 500 mg PO Q12H ciprofloxacin HCl 500 mg tablet 500 mg PO Q12H fluoxetine 10 mg capsule 10 mg PO DAILY Print Language: Canadian Instructions: Constipation (ED) Additional Instructions: use miralax and follow up with your doctor this week for recheck Referrals: Physician,Non-Staff, MD [Primary Care Provider] - 1 week Documented by User: Stevenson Luis MD 06/28/25 00:01 HPI HPI - General Adult General Chief complaint: Abdominal Pain Stated complaint: Abdominal pain Time Seen by Provider: 06/27/25 19:44 Related Data Home Medications ?Medication ?Instructions ?Recorded ?Confirmed ciprofloxacin HCl 500 mg tablet 500 mg PO Q12H 06/27/25 06/27/25 cyclobenzaprine 10 mg tablet 10 mg PO Q8H PRN pain 06/27/25 06/27/25 fluoxetine 10 mg capsule 10 mg PO DAILY 06/27/25 06/27/25 metronidazole 500 mg tablet 500 mg PO Q12H 06/27/25 06/27/25 Allergies Allergy/AdvReac Type Severity Reaction Status Date / Time No Known Drug Allergies Allergy Verified 06/27/25 19:40 Opioid HPI Opioid Management Most Recent Opioid Data: Last Pain Scale 9 06/27/25, 21:25 Last ED Pain Assessment 06/27/25, 21:25 Last MAR Pain Assessment 06/27/25, 20:45 PFSH PFSH Medical History (Updated 06/27/25 @ 23:58 by Stevenson Luis MD) Crohn's disease ?K50.90 - Crohn's disease, unspecified, without complications (ICD-10) Surgical History (Updated 05/08/25 @ 06:08 by Florencia Booth) History of bilateral salpingectomy ?Z90.79 - Acquired absence of other genital organ(s) (ICD-10) Social History Little interest or pleasure in doing things: not at all Feeling down, depressed, or hopeless: not at all Exam Constitutional Vital Signs, click to edit/add: Last Vital Signs Temp 98.7 F 06/27/25 19:34 Pulse 104 H 06/27/25 19:34 Resp 18 06/27/25 19:34 BP 108/63 06/27/25 21:58 Pulse Ox 100 06/27/25 22:00 O2 Del Method Room Air 06/27/25 19:34 Course Vital Signs Vital signs: Vital Signs Temperature 98.7 F 06/27/25 19:34 Pulse Rate 104 H 06/27/25 19:34 Respiratory Rate 18 06/27/25 19:34 Blood Pressure 121/81 06/27/25 19:34 Pulse Oximetry 98 06/27/25 19:34 Oxygen Delivery Method Room Air 06/27/25 19:34 Temperature 98.7 F 06/27/25 19:34 Pulse Rate 104 H 06/27/25 19:34 Respiratory Rate 18 06/27/25 19:34 Blood Pressure 108/63 06/27/25 21:58 Pulse Oximetry 100 06/27/25 22:00 Oxygen Delivery Method Room Air 06/27/25 19:34 Medical Decision Making MDM Narrative Medical decision making narrative: 39-year-old female with Crohn?s disease presents with new and atypical RUQ abdominal pain not improved with recent antibiotics for colitis and UTI. Differential includes hepatobiliary pathology (cholelithiasis/cholecystitis), pancreatitis, Crohn?s flare or complications such as obstruction or abscess, recurrent intussusception, and persistent UTI/pyelonephritis. On arrival patient laying comfortably on the ED cart, exquisitely tender when you palpate the RUQ of the abdomen. Mild tachycardia, 104, BP hemodynamically stable. IV access obtained and 1 L normal saline given for hydration. Symptomatic treatment provided with 0.5 mg IV Dilaudid and 4 mg IV Zofran. CBC, CMP, lipase, and UA ordered. RUQ ultrasound ordered to further assess for gallbladder or biliary disease. [facility] medical records contacted for lab and imaging results from her ED visit on 06/21 with her permission. Current labs show Hgb 11 g/dL (down from 12.3 on 05/08), WBC 8.4 ?10?/?L without left shift, electrolytes and renal function within normal limits, lipase 53 U/L (WNL), and negative hCG. No acute leukocytosis or metabolic derangements. RUQ ultrasound normal, no gallstones, gallbladder appears normal. UA negative occult blood, negative nitrates, negative leuk esterase, 0?2 WBCs, trace bacteria, UTI appears to have resolved. I discussed lab and imaging results thus far with patient. I did order a CT abdomen/pelvis with IV contrast. She requests something for anxiety as she notes her Crohn's has been in remission until her father recently and she has been extremely stressed. 0.5 mg IV Ativan given. CT abdomen and pelvis with IV contrast results from [facility] from 06/21/25 reviewed and there is mild dilation and wall thickening of the jejunum, may represent infectious or inflammatory enteritis. At this time, 2200, my shift is coming to an end and patient care discussed and transferred to Dr. Luis. Disposition pending pain control and CT results. CT returned with results of constipation. Patient informed of the above. offered mg citrate or enema. She did not want either. Has miralax at home and will use it Lab Data Labs: Lab Results 06/27/25 06/27/25 Range/Units 20:23 21:20 WBC 8.4 (4.0-11.0) 10^3/uL RBC 3.57 L (4.20-5.40) 10^6/uL Hgb 11.0 L (12.0-16.0) g/dL Hct 33.1 L (36.0-48.0) % MCV 92.7 (81.0-99.0) fL MCH 30.8 (26.7-34.0) pg MCHC 33.2 (29.9-35.2) g/dL RDW 13.2 (11.0-15.0) % Plt Count 348 (150-450) 10^3/uL MPV 9.0 L (9.5-13.5) fL Neut % (Auto) 64.7 (43.0-75.0) % Lymph % (Auto) 24.3 (20.5-60.0) % Glasscock % (Auto) 8.1 (1.7-12.0) % Eos % (Auto) 1.9 (0.9-7.0) % Baso % (Auto) 0.6 (0.2-2.0) % Neut # (Auto) 5.4 (1.4-6.5) 10^3/uL Lymph # (Auto) 2.0 (1.2-3.8) 10^3/uL [place]cock # (Auto) 0.7 (0.3-0.8) 10^3/uL Eos # (Auto) 0.2 (0.0-0.7) 10^3/uL Baso # (Auto) 0.1 (0.0-0.1) 10^3/uL Abs Immat Gran (auto) 0.03 (0.00-0.03) 10^3/uL Imm/Tot Granulo (auto) 0.4 (0.0-0.5) % Sodium 142 (136-145) mmol/L Potassium 4.0 (3.5-5.1) mmol/L Chloride 107 (98-107) mmol/L Carbon Dioxide 30.2 (21.0-32.0) mmol/L Anion Gap 8.8 BUN 13.0 (7.0-18.0) mg/dL Creatinine 0.71 (0.55-1.02) mg/dL Est GFR ( Amer) >60 (>=60 mL/min/1.73m^2) Est GFR (Non-Af Amer) >60 (>=60 mL/min/1.73m^2) BUN/Creatinine Ratio 18.3 Glucose 97 (74-106) mg/dL Calcium 9.0 (8.5-10.1) mg/dL Total Bilirubin 0.2 (0.2-1.0) mg/dL AST 17 (15-37) U/L ALT 30 (14-59) U/L Alkaline Phosphatase 52 (46-116) U/L Total Protein 6.4 (6.4-8.2) g/dL Albumin 3.5 (3.4-5.0) g/dL Globulin 2.9 g/dL Albumin/Globulin Ratio 1.2 Lipase 53.0 (16.0-77.0) U/L Serum HCG, Qual Negative (NEGATIVE) Urine Color Lt. yellow (YELLOW) Urine Clarity Clear (CLEAR) Urine pH 7.0 (5.0-9.0) Ur Specific [place] 1.015 (1.005-1.025) Urine Protein Negative (NEG/TRACE) mg/dL Urine Glucose (UA) Negative (NEGATIVE) mg/dL Urine Ketones Negative (NEGATIVE) mg/dL Urine Occult Blood Negative (NEGATIVE) Urine Nitrite Negative (NEGATIVE) Urine Bilirubin Negative (NEGATIVE) Urine Urobilinogen 0.2 (0.2-1.0) EU/dL Ur Leukocyte Esterase Negative (NEGATIVE) Urine RBC 0-2 (0-2) #/HPF Urine WBC 0-2 A (NONE SEEN) #/HPF Ur Squamous Epith Cells Rare (NONE/RARE) #/LPF Urine Crystals None seen (None Seen) #/HPF Urine Bacteria Trace A (NONE SEEN) #/HPF Urine Casts None seen (NONE SEEN) #/LPF Urine Mucus None seen (NONE SEEN) Imaging Data US - abdomen: Radiologist's impression: ITS Impressions Upper Quadrant Ultrasound 06/27/25 19:54 IMPRESSION: Normal right upper quadrant ultrasound. Impression dictated by: Kendrick Oakes M.D. 06/27/2025 9:24 PM Dictation Location: [employer] Electronically authenticated by: [id number] Y Date: 06/27/2025 21:24 Abdomen/Pelvis CT 06/27/25 21:45 IMPRESSION: Moderate stool burden within the colon. Findings may raise possibility for constipation. Appendix is not identified. No pericecal inflammatory changes. Otherwise negative acute inflammatory process or bowel obstruction. Impression dictated by: Jonathan Garcia M.D. 06/27/2025 11:18 PM Dictation Location: [employer] Electronically authenticated by: [id number] Y Date: 06/27/2025 23:18 Chest x-ray: Radiologist's impression: ITS Impressions Upper Quadrant Ultrasound 06/27/25 19:54 IMPRESSION: Normal right upper quadrant ultrasound. Impression dictated by: Kendrick Oakes M.D. 06/27/2025 9:24 PM Dictation Location: [employer] Electronically authenticated by: [id number] Y Date: 06/27/2025 21:24 Abdomen/Pelvis CT 06/27/25 21:45 IMPRESSION: Moderate stool burden within the colon. Findings may raise possibility for constipation. Appendix is not identified. No pericecal inflammatory changes. Otherwise negative acute inflammatory process or bowel obstruction. Impression dictated by: Jonathan Garcia M.D. 06/27/2025 11:18 PM Dictation Location: [employer] Electronically authenticated by: [id number] Y Date: 06/27/2025 23:18 Discharge Plan Discharge Chief Complaint: Abdominal Pain Clinical Impression: Crohn disease, Constipation Patient Disposition: Home, Self-Care Prescriptions / Home Meds: No Action cyclobenzaprine 10 mg tablet 10 mg PO Q8H PRN (Reason: pain) metronidazole 500 mg tablet 500 mg PO Q12H ciprofloxacin HCl 500 mg tablet 500 mg PO Q12H fluoxetine 10 mg capsule 10 mg PO DAILY Print Language: Canadian Instructions: Constipation (ED) Additional Instructions: use miralax and follow up with your doctor this week for recheck Referrals: Physician,Non-Staff, MD [Primary Care Provider] - 1 week
--- OUTSIDE RECORDS SUMMARY | 2025-06-27 20:05 | XMS_ITS | Clinical Summary ---
Author Organization [facility] Address [address] [place] [address] Care Team Providers Care Collet Maker Name Role Phone Catherine Jones MD Primary Care Provider Argenis Guadarrama HEADLINE WRITER Unavailable [phone] Allergies Active AllergyReactionsCriticalityNoted DateCommentsHydrocodone-Acetaminophen 01/09/2023 Other Reaction(s): vomiting,nausea Medications MedicationSigDispense QuantityRefillsLast FilledStart DateEnd DateStatus loratadine (Claritin) 10 MG tablet Take 10 mg by mouth Daily as needed.Active FLUoxetine (PROzac) 40 MG capsule Indications:Current moderate episode of major depressive disorder without prior episode (HCC),RILEY (generalized anxiety disorder),Mood disorderTake 1 capsule (40 mg) by mouth in the morning. 100 capsule ctive Active Problems ProblemNoted DateDiagnosed DateNormal weight, pediatric, BMI 5th to 84th percentile for age0601/09/2023cute right-sided low back pain without sciatica 01/09/2023llergic rhinitis due to /23/2023rohn's ofupqwe7701/09/2023 RILEY (generalized anxiety disorder)01/09/2023History of substance abuse01/09/2023 Inguinal pain01/09/2023Irritable bowel tzxruhfy77/23/2023Major depressive disorder, single episode, cirburmykge12/23/2023Mild episode of recurrent major depressive ecmhltwo21/23/2023Mood yvatplvk75/23/2023ain of right hip joint 01/09/2023igarette ltalzn5301/09/20230765Qtlnjo49/23/2023 Immunizations ImmunizationAdministration DatesNext MjeByoz52/14/2013 Family History Medical HistoryRelationNameCommentsCancerFatherNickMental illnessFatherNick DiabetesMaternal GrandmotherMaryDepressionMotherKathyMental illnessMotherKathy RelationNameStatusCommentsFatherNickAliveMaternal GrandmotherMaryAliveMother KathyAlive Social History Tobacco UseTypesPacks/DayYears UsedDateSmoking Tobacco: Every DayCigarettes Smokeless Tobacco: NeverAlcohol UseStandard Drinks/WeekCommentsNot Currently0 (1 standard drink = 0.6 oz pure alcohol)Humiliation, Afraid, Rape, and Kick questionnaireAnswerDate RecordedWithin the last year, have you been afraid of your partner or ex-partner?No01/11/2023Within the last year, have you been humiliated or emotionally abused in other ways by your partner or ex-partner?No 01/11/2023Within the last year, have you been kicked, hit, slapped, or otherwise physically hurt by your partner or ex-partner?No01/11/2023Within the last year, have you been raped or forced to have any kind of sexual activity by your part ner or ex-partner?No01/11/2023Social Connection and Isolation PanelAnswerDate RecordedIn a typical week, how many times do you talk on the phone with family, friends, or neighbors?More than three times a week01/11/2023How often do you get together with friends or relatives?Once a week01/11/2023How often do you attend hinduism or pentecostal services?Never01/11/2023o you belong to any clubs or organizations such as hinduism groups, unions, fraternal or athletic groups, or school groups?No01/11/2023How often do you attend meetings of the clubs or organizations you belong to?Never01/11/2023re you , , , , never , or living with a partner?Bkvsequx82/25/2023UDIT-C AnswerDate RecordedQ1: How often do you have a drink containing alcohol?Monthly or less01/11/2023Q2: How many drinks containing alcohol do you have on a typical day when you are drinking?1 or Q3: How often do you have six or more drinks on one occasion?Never01/11/2023Overall Financial Resource Strain (CARDIA) AnswerDate RecordedHow hard is it for you to pay for the very basics like food, housing, medical care, and heating?Somewhat hard01/11/2023HQ-2AnswerDate RecordedPatient Health Questionnaire-2 Hfsxm156FinFranciscan Health [facility] of Occupational Health - Occupational Stress QuestionnaireAnswerDate RecordedDo you feel stress - tense, restless, nervous, or anxious, or unable to sleep at night because yourmind is troubled all the time - these days?To some ooiuxc9201/11/2023 Exercise Vital SignAnswerDate RecordedOn average, how many days per week do you engage in moderate to strenuous exercise (like a brisk walk)?2 days01/11/2023On average, how many minutes do you engage in exercise at this level?10 min 01/11/2023Hunger Vital SignAnswerDate RecordedWithin the past 12 months, you worried that your food would run out before you got the money to buymore.Never true01/11/2023Within the past 12 months, the food you bought just didn't last and you didn't have money to get more.Never true01/11/2023RAPARE - TransportationAnswerDate RecordedIn the past 12 months, has lack of transportation kept you from medical appointments or from getting medications? Yes01/11/2023In the past 12 months, has lack of transportation kept you from meetings, work, or from getting things needed for daily living?No01/11/2023 Housing Stability Vital SignAnswerDate RecordedIn the last 12 months, was there a time when you were not able to pay the mortgage or rent on time?No01/11/2023In the last 12 months, how many places have you lived?In the last 12 months, was there a time when you did not have a steady place to sleep or slept in ashelter (including now)?No01/11/2023CommentsUnknownSex and Gender InformationValueDate RecordedSex Assigned at SncajEfexyt38/25/2023 11:36 AM EDT Legal DgyNarvsc79/15/2023 7:27 PM EDTGender TuxaksssYxtaly30/25/2023 11:36 AM EDTSexual OrientationNot on file Last Filed Vital Signs Vital SignReadingTime TakenCommentsBlood Acatsmxe863/62001/12/2023 11:12 AM EDT Couay352901/12/2023 11:12 AM AFKKurqiwielgp99.2 ??C (98.9 ??F)01/12/2023 11:12 AM EDTRespiratory Rate--Oxygen Rilqqyqvjn42%01/12/2023 11:12 AM EDTInhaled Oxygen Concentration--Silzzy59.6 kg (129 lb 3.2 oz)01/12/2023 11:12 AM MYTRnngde436.8 cm (5' 4.5 )01/12/2023 11:12 AM EDTBody Mass Index21.8301/12/2023 11:12 AM EDT Plan of Treatment Health MaintenanceDue DateLast DoneCommentsPneumococcal Vaccine: Pediatrics (0 to 5 Years) and At-Risk Patients (6 to 64 Years) (1 of 2 - PCV)2006Pap Smear2008Cervical Cancer Gzqundqjc09/26/2017HPV/Mhhvti9507/14/2017COVID-19 Vaccine (1 - season)2025Influenza Vaccine (#1)2025 03/23/2015, 04/06/2014, 04/15/2013, Additional history exists Insurance * Guarantor: Chayito ChandlerAccount TypeRelation to PatientDate of BirthPhone Billing AddressPersonal/JutfmoZcyy1985 [facility] [place] [address] Care Teams Team MemberRelationshipSpecialtyStart DateEnd Date Catherine Jones MD [address] [place] [address] [facility] - [facility]01/12/23 Argenis Guadarrama NP [address] [place] [address] Nurse PractitionerNorthside Hospital [facility]01/12/23
--- OUTSIDE RECORDS SUMMARY | 2025-06-27 20:05 | XMS_ITS | Clinical Summary ---
Author Organization [facility] Address [address] [place] [id number] Care Team Providers Care Vp Production Name Role Phone Unavailable Primary Care Provider Unavailabl e Allergies No known active allergies Medications MedicationSigDispense QuantityRefillsLast FilledStart DateEnd DateStatus buprenorphine-nalOXone SL (SUBOXONE) 8-2 mg subl TAKE 1 TABLET SUBLINGUALLY EVERY MORNING AND HALF A TABLET EVERY EVENING 03/04/2022ctive divalproex DR (DEPAKOTE) 250 mg EC tablet Take 250 mg by mouth once daily.11/12/2021ctive venlafaxine (EFFEXOR) 100 mg tablet Take 75 mg by mouth.Active Social History Tobacco UseTypesPacks/DayYears UsedDateSmoking Tobacco: Never AssessedArea Deprivation IndexAnswerDate RecordedNational Score (1-100), lower number is lower qjsh760502/08/2025State Score (1-10), lower number is lower cdsr73202/08/2025 Data from: https://www.neighborhoodatlas.medicine.[facility].edu/. Last address used for qkrtdgnvefy[address] [facility]02/08/2025CommentsUnknownSex and Gender InformationValueDate RecordedSex Assigned at BirthNot on fileLegal SexFemale 02/28/2021 8:35 AM EDTGender IdentityNot on fileSexual OrientationNot on file Last Filed Vital Signs Vital SignReadingTime TakenCommentsBlood Cbgxmgtx02/6508 1:14 PM EDT Varlq14305 1:14 PM EDTTemperature--Respiratory Rate--Oxygen Saturation-- Inhaled Oxygen Concentration--Fznnxc16.5 kg (129 lb)03/10/2022 1:14 PM EDTHeight --Body Mass Index-- Plan of Treatment Health MaintenanceDue DateLast DoneCommentsAnxiety Ylzaaqwvt36/26/2005Depression Jgozgysah52/26/2005HIV Unoatdcjv51/26/2005Hepatitis C Nvqayuusc00/26/2005 Hepatitis B Vaccine (1 of 3 - 19+ 3-dose series)2006Cervical Cancer Bvibaqzxg95/26/2008HPV Vaccine (1 - 3-dose SCDM series)2014Covid-19 Vaccine (1 - 2024- season)2025Influenza Vaccine (#1)2025 03/23/2015, 04/06/2014, 04/15/2013, Additional history existsDTaP,Tdap,Td Vaccine (3 - Td or Tdap), 05/02/2013 Insurance * Guarantor: Chayito Chandler EAccount TypeRelation to PatientDate of BirthPhone Billing AddressPersonal/ArprctVkvp1985 [facility] [place] [address]
--- OUTSIDE RECORDS SUMMARY | 2025-06-27 20:06 | XMS_ITS | Patient Health Record ---
Author Organization [facility] [place] Address [address] [place] [address] Support Name Relationship Address Phone Chayito Chandler Guarantor Unknown [phone] Reason For Referral No Information Plan Of Treatment No Information
[2025-06-27 20:33] LABS: Hematocrit 33.1 % (36.0-48.0); Hemoglobin 11.0 g/dL (12.0-16.0); Immature Granulocytes Abs Auto 0.03 10^3/uL (0.00-0.03); Immature Granulocytes Pct Auto 0.4 % (0.0-0.5); Lymphocytes Absolute Auto 2.0 10^3/uL (1.2-3.8); Mean Corpuscular HGB Conc 33.2 g/dL (29.9-35.2); Mean Corpuscular Hemoglobin 30.8 pg (26.7-34.0); Mean Corpuscular Volume 92.7 fL (81.0-99.0); Platelet Count 348 10^3/uL (150-450); Red Blood Count 3.57 10^6/uL (4.20-5.40); White Blood Count 8.4 10^3/uL (4.0-11.0)
[2025-06-27] MEDS: 0.9 % SODIUM CHLORIDE 1,000 ML 1000 ML IV (20:34)
[2025-06-27] MEDS: HYDROMORPHONE HCL 1 MG/ML CARTRIDGE 0.5 MG IVP (20:45)
[2025-06-27 20:47] LABS: Alanine Aminotransferase 30 U/L (14-59); Albumin Globulin Ratio 1.2; Albumin Level 3.5 g/dL (3.4-5.0); Alkaline Phosphatase 52 U/L (46-116); Anion Gap 8.8; Aspartate Amino Transferase 17 U/L (15-37); Blood Urea Nitrogen 13.0 mg/dL (7.0-18.0); Calcium 9.0 mg/dL (8.5-10.1); Carbon Dioxide 30.2 mmol/L (21.0-32.0); Chloride 107 mmol/L (98-107); Estimated GFR (African America >60 (>=60 mL/min/1.73m^2); Estimated GFR (Non-African Ame >60 (>=60 mL/min/1.73m^2); Globulin 2.9 g/dL; Glucose 97 mg/dL (74-106); Lipase 53.0 U/L (16.0-77.0); Potassium 4.0 mmol/L (3.5-5.1); Sodium 142 mmol/L (136-145); Total Protein 6.4 g/dL (6.4-8.2)
--- NOTE | 2025-06-27 21:26 | PC.NURSE ---
this patient did ambulated to restroom and is back in bed, patient did provide a urine sample and this was sent to lab dept. i visualized ambulation to the restroom and this patient gait steady
[2025-06-27 21:27] LABS: Glucose Urine UA NEGATIVE (NEGATIVE)
[2025-06-27 21:37] LABS: Cast Seen? NONE SEEN #/LPF (NONE SEEN); Crystals Seen? None Seen #/HPF (None Seen)
--- NOTE | 2025-06-27 21:45 | CT_ITS ---
The [address] [address] Patient Name: XOCHITL HERNADEZ MRN: [id number] date: 1985 Sex: F Assigned Patient Location: ED.MAIN Current Patient Location: ED.MAIN Accession/Order Number: [id number] Exam Date: 06/27/2025 22:00 Report Date: 06/27/2025 23:18 At the request of: OJ CORBETT Procedure: CT abdomen pelvis w con CT ABDOMEN AND PELVIS WITH INTRAVENOUS CONTRAST: CLINICAL HISTORY: RUQ pain, h/o Crohns COMPARISON: 05/08/2025 TECHNIQUE: Spiral images were obtained through the abdomen and pelvis following the administration of intravenous contrast. This CT exam was performed using one or more following dose reduction techniques: Automated exposure control, adjustment of the mA and/or kV according to patient size, or use of iterative reconstruction technique. FINDINGS: Lung Bases: [3 mm right middle lobe nodule doubtful clinical significance. Lung bases otherwise clear.] Organs:Liver, gallbladder, spleen, adrenals, kidneys, and pancreas are unremarkable.[ GI: Moderate to large burden of stool proximal colon. The appendix is not identified. No definite bowel wall thickening or surrounding inflammatory changes.[ Pelvis:[Bladder unremarkable. Uterus grossly unremarkable. No definite adnexal mass.] Peritoneum/Retroperitoneum:Trace free fluid dependent pelvis. No free air. Aorta normal caliber. No pathologic adenopathy identified.[ Abd wall/Bones:No suspicious osseous lesion.[ CT/CT abdomen pelvis w con IMPRESSION: Moderate stool burden within the colon. Findings may raise possibility for constipation. Appendix is not identified. No pericecal inflammatory changes. Otherwise negative acute inflammatory process or bowel obstruction. Impression dictated by: Jonathan Garcia M.D. 06/27/2025 11:18 PM Dictation Location: [place] [address] Electronically authenticated by: [id number] Y Date: 06/27/2025 23:18
[2025-06-27] MEDS: LORAZEPAM 2 MG/ML VIAL 0.5 MG IV (21:58)
--- NOTE | 2025-06-27 22:29 | PC.NURSE ---
this patient is back from ct dept and lying supine in bed awake and alert and hold a electric vape in her right hand. i informed this patient she can not use that in here. this patient replied Oh I am not just holding it for support, and she also its empty. this patient's room had a odor of strawberry. i informed this patient waiting ct results. this patient voices no concerns, needs and shows no signs of distress
--- NOTE | 2025-06-27 23:43 | PC.NURSE ---
this patient resting on her left side on the bed, patient voices no concerns, needs and shows no signs of distress
--- NOTE | 2025-06-28 00:28 | PC.NURSE ---
i gave this patient verbal and written discharge orders and this patient voices yes to understanding these. at time of discharge this patient voices concerns, why cant I be admitted, its nice to be taking care of when you do not feel good,and this patient voices no signs of distress
== END 2025-06-28 00:31 | disposition home or self-care (01) ==
PROVIDERS: Physician Assistant; Emergency Provider Internal Medicine
DX: K59.00 Constipation, unspecified (principal); K50.90 Crohn's disease, unspecified, without complications; R10.11 Right upper quadrant pain; F41.9 Anxiety disorder, unspecified; Z87.440 Personal history of urinary (tract) infections
CPT/HCPCS: 36415; 74177; 76705; 80053; 81001; 83690; 84703; 85025; 96374; 96375; 99284; 99285; J1171; J2060; J2405; Q9967